=== PATIENT | female | born 1940 | race Caucasian/White ===

== ENCOUNTER 2017-08-01 10:46 | Emergency (ER) | payer MEDICARE ==
[~2017-08-01] VITALS: Ht 162.6 cm; Wt 45.0 kg
[~2017-08-01 10:46] MED LIST: NORC5TAB PO; QUET50XR PO
[2017-08-01 10:49] VITALS: BP 147/67; PULSE 90; RESP 14; O2SAT 98
--- NOTE | 2017-08-01 11:17 | PD ---
HPI Chief Complaint: Fall Time Seen by Provider: 11:06 Travel History International Travel<30 days: No Contact w/Intl Traveler<30days: No Traveled to known affect area: No History of Present Illness HPI Patient comes in with her caregiver for evaluation of left hip pain after a witnessed mechanical fall last night. There was no head injury or loss of consciousness. Patient has been able to ambulate with assistance since the fall however complaining of pain in her left hip per caregiver. Patient has a history of dementia and is at her baseline per her caregiver is not able to contribute to her history at this time. Patient is very anxious which caregiver reports is normal whenever she is outside of her house. Caregiver denies doing anything for the hip pain. Pain improves with not walking and worse with weightbearing. PFSH Past Medical History Alzheimer's Disease: Yes Arthritis: No Asthma: No Autoimmune Disease: No Heart Rhythm Problems: No Cardiovascular Problems: Yes High Cholesterol: Yes Chest Pain: No Congestive Heart Failure: No COPD: No Cerebrovascular Accident: Yes Dementia: Yes Diminished Hearing: No Endocrine: No Gastrointestinal Disorders: No GERD: No Genitourinary: Yes Headaches: No Hepatitis: No Hiatal Hernia: No Hypertension: Yes Immune Disorder: No Kidney Stones: No Musculoskeletal: No Neurologic: No Psychiatric: No Reproductive: No Respiratory: No Migraines: No Renal Failure: No Seizures: No Sleep Apnea: No Ulcer: No ?: Not Menopausal: Yes Past Surgical History Appendectomy: No Cardiac Surgery: No Cholecystectomy: Yes Ear Surgery: No Endocrine Surgery: No Eye Surgery: No Genitourinary Surgery: No Gynecologic Surgery: Yes (Prolapsed bladder) Hysterectomy: Yes Neurologic Surgery: No Oral Surgery: No Thoracic Surgery: No Other Surgery: Yes Social History Alcohol Use: No Tobacco Use: No Substance Use: No Allergies-Medications (Allergen,Severity, Reaction): Coded Allergies: No Known Allergies (Verified , 08/01/17) Reported Meds & Prescriptions Reported Meds & Active Scripts Active Tylenol-Codeine #3 (Acetaminophen-Codeine) 300-30 mg Tab 1 Tab PO Q6HR PRN Reported Seroquel XR (Quetiapine Fumarate) 50 Mg Tab 50 Mg PO DAILY Review of Systems ROS Limitations: Poor Historian Except as stated in HPI: all other systems reviewed are Neg Physical Exam Exam Limitations: Poor Historian Narrative GENERAL: Well-developed, well nourished, anxious, but in no acute distress, and non-ill appearing. SKIN: Focused skin assessment warm and dry. HEAD: Atraumatic. Normocephalic. EYES: Pupils equal and round. EOMI. No scleral icterus. No injection or drainage. ENT: No nasal bleeding or discharge. Mucous membranes pink and moist. NECK: Trachea midline. Supple. No nuclear rigidity. CARDIOVASCULAR: Dorsal pulses 2+, intact, equal bilaterally. Capillary refill equal bilaterally. RESPIRATORY: No accessory muscle use. No respiratory distress. MUSCULOSKELETAL: No obvious deformities. No clubbing. No cyanosis. No edema. Patient moving all extremities trying to climb out of bed. Hip: FROM and equal BL with passive flexion, extension, Abduction, Adduction, and internal/ external rotation. Pulses equal BL distal to injury. Capillary refill less than 2 seconds distal to injury and equal BL. FROM distal to injury and equal BL. Strength distal to injury equal BL. NV intact distal to injury and equal BL. Plantar flexion and dorsal flexion equal BL. Dorsal pulses equal BL. Sensation equal BL 1st web space. NEUROLOGICAL: Awake and alert. No obvious cranial nerve deficits. Motor grossly within normal limits. Normal speech for patient. PSYCHIATRIC: Appropriate mood and affect. Patient is at her baseline per caregiver. Data Data Last Documented VS Vital Signs Date Time Temp Pulse Resp B/P (MAP) Pulse Ox O2 Delivery O2 Flow Rate FiO2 08/01/17 14:38 08/01/17 10:49 90 14 98 Orders Orders Hip, Uni(Ap&Lat) W Ap Pelvis (08/01/17 ) Ct Pelvis W/O Iv Contrast (08/01/17 ) Ed Discharge Order (08/01/17 14:29) [facility] Medical Decision Making Medical Screen Exam Complete: Yes Emergency Medical Condition: Yes Interpretation(s) Last Impressions Pelvis CT 08/01/17 0000 Signed Impressions: Service Date/Time: Tuesday, August 01, 2017 13:50 - CONCLUSION: No fracture seen. Pato Kat MD Hip and Pelvis X-Ray 08/01/17 0000 Signed Impressions: Service Date/Time: Tuesday, August 01, 2017 11:31 - CONCLUSION: Intact left total hip arthroplasty. Diffuse osteopenia. Pato Kat MD Differential Diagnosis Fracture, strain, contusion, dislocation Narrative Course The patient appears to have suffered a contusion of the extremity. There is no clinical evidence to suspect bony injury by exam. Radiographic examinations revealed no fracture seen at this time. There is no significant edema. There is no proximal or distal joint effusion. The distal extremity appears neurovascularly intact, without evidence of neurovascular injury nor compartment syndrome. Tendon exam also was intact. The patient was discharged on pain medication and instructions given warnings for vascular compromise. The patient is to follow up with their regular physician. The patient caregiver agrees with plan. Patient in no obvious distress upon re-evaluation. All pertinent Radiology result(s) discussed with patient and her caregiver. Discussed patient with Dr. Holland prior to discharge, who is in agreement with plan of care and disposition. Patient's caregiver was asked if they wanted to speak to my attending, which the patient did not wish to do at this time. Any questions/ concerns in reference to patient diagnosis/condition discussed and clarified prior to patient's discharge. Reinforced sheer importance of close follow up with patient's primary physician or primary care clinic. Instructed patient's caregiver to return to ED immediately, if symptoms return/worsen. Patient's caregiver showed understanding of above instructions. Further instructions and recommendations were detailed in discharge paperwork. Patient left without difficulty out of ED at discharge. Diagnosis Primary Impression: Left hip pain Additional Impression: Fall Qualified Codes: W19.XXXA - Unspecified fall, initial encounter Patient Instructions: Contusion in Adults (ED), Fall Prevention (ED), General Instructions, Hip Pain (ED) Additional Instructions: Follow-up with your primary care physician in 3-5 days for reevaluation. Take all medication as prescribed. Apply ice to affected area 20 minutes per hour as needed for pain. Return to the emergency department if symptoms get worse. Med/Other Pt SpecificInfo: Prescription(s) given Scripts Acetaminophen-Codeine (Tylenol-Codeine #3) 300-30 mg Tab 1 TAB PO Q6HR Y for PAIN, #9 TAB 0 Refills Prov: Edin Holland MD 08/01/17 Disposition: 01 DISCHARGE HOME Condition: Stable Sandip Ken Aug 01, 2017 11:17
--- NOTE | 2017-08-01 12:07 | RADRPT ---
EXAM DATE/TIME: 08/01/2017 11:31 [facility] COMPARISON: No previous studies available for comparison. INDICATIONS : Left hip pain, fall. MEDICAL HISTORY : Stroke. Hypertension SURGICAL HISTORY : Cholecystectomy. Hysterectomy. Left total hip replacement, bladder surgery. ENCOUNTER: Initial ACUITY: 2 days PAIN SCORE: 5/10 LOCATION: Left hip FINDINGS: Unipolar noncemented total hip arthroplasty on the left side with intact hardware. The bone metal in terface is intact. No fracture or dislocation seen. Metallic cage devices at the L5-S1 interspace. Diffuse osteopenia. The bony pelvic ring appears grossly intact. CONCLUSION: Intact left total hip arthroplasty. Diffuse osteopenia. Pato Kat MD on August 01, 2017 at 12:00 Board Certified Radiologist. This report was verified electronically.
--- NOTE | 2017-08-01 14:17 | RADRPT ---
EXAM DATE/TIME: 08/01/2017 13:50 [facility] COMPARISON: HIP LEFT (AP&LAT 2/3VWS) W AP PELVIS, August 01, 2017, 11:31. INDICATIONS : Fall last night, left hip pain. ORAL CONTRAST: No oral contrast ingested. RADIATION DOSE: 10.55 CTDIvol (mGy) ; Patient motion MEDICAL HISTORY : Alzheimer's Dementia. Cardiovascular disease SURGICAL HISTORY : Left hip replacement. ENCOUNTER: Initial ACUITY: 1 day PAIN SCALE: 8/10 LOCATION: Left pelvis TECHNIQUE: Volumetric scanning of the pelvis was performed. Using automated exposure control and adjustment of the mA and/or kV according to patient size, radiation dose was kept as low as reasonably achievable t o obtain optimal diagnostic quality images. DICOM format image data is available electronically for review and comparison. FINDINGS: One diffuse osteopenia. No fracture seen in the pelvic ring or sacrum. Left total hip arthroplasty in. Hardware is intact. Metallic interspace cage at the L5-S1 interspace. No evidence of free flui d pelvis. Post surgical changes right lateral iliac wing. CONCLUSION: No fracture seen. Pato Kat MD on August 01, 2017 at 14:13 Board Certified Radiologist. This report was verified electronically.
[2017-08-01] MEDS ORDERED: TYLETAB34 PO (14:27)
== END 2017-08-01 14:39 | disposition home or self-care (01) ==
LOC: NEPC 10:46
DX: M25.552 Pain in left hip (principal); M85.80 Other specified disorders of bone density and structure, unspecified site; E78.00 Pure hypercholesterolemia, unspecified; G30.9 Alzheimer's disease, unspecified; F02.80 Dementia in other diseases classified elsewhere, unspecified severity, without behavioral disturbance, psychotic disturbance, mood disturbance, and anxiety; Z86.73 Personal history of transient ischemic attack (TIA), and cerebral infarction without residual deficits; W19.XXXA Unspecified fall, initial encounter
CPT/HCPCS: 72192; 73502

== ENCOUNTER 2018-03-25 11:42 | Inpatient (IN) | payer MEDICARE ==
[~2018-03-25] VITALS: Ht 162.6 cm; Wt 60.5 kg
[2018-03-25] VITALS (7 sets, daily range): BP systolic 122–178; BP diastolic 57–80; PULSE 84–99; RESP 16–19; TEMP 97.3–98.5; O2SAT 96–98
[~2018-03-25 11:42] MED LIST changes: -NORC5TAB PO; +TYLETAB34 PO
[2018-03-25] MEDS ORDERED: SODIUM CHLORIDE 0.9% FLUSH 10 ML FLUSH IVF PRN (12:00)
--- NOTE | 2018-03-25 12:02 | PD ---
HPI Chief Complaint: Hip Injury Time Seen by Provider: 11:54 Travel History International Travel<30 days: No Contact w/Intl Traveler<30days: No History of Present Illness HPI 78-year-old female with PMH of dementia presents the ED via EMS for evaluation after mechanical fall last night. Witnessed by the caregiver. Caregiver on scene denies that the patient hit her head or loss consciousness. She states that the patient took a few steps on the leg overnight. On exam the patient is alert. She is demented and unable to provide any meaningful history. PFSH Past Medical History Alzheimer's Disease: Yes Arthritis: No Asthma: No Autoimmune Disease: No Anxiety: Yes Heart Rhythm Problems: No Cardiovascular Problems: Yes High Cholesterol: Yes Chest Pain: No Congestive Heart Failure: No COPD: No Cerebrovascular Accident: Yes Dementia: Yes Diminished Hearing: No Endocrine: No Gastrointestinal Disorders: No GERD: No Genitourinary: Yes Headaches: No Hepatitis: No Hiatal Hernia: No Hypertension: Yes Immune Disorder: No Kidney Stones: No Musculoskeletal: No Neurologic: No Psychiatric: No Reproductive: No Respiratory: No Migraines: No Renal Failure: No Seizures: No Sleep Apnea: No Ulcer: No Menopausal: Yes Past Surgical History Appendectomy: No Cardiac Surgery: No Cholecystectomy: Yes Ear Surgery: No Endocrine Surgery: No Eye Surgery: No Genitourinary Surgery: No Gynecologic Surgery: Yes (Prolapsed bladder) Hysterectomy: Yes Neurologic Surgery: No Oral Surgery: No Thoracic Surgery: No Other Surgery: Yes Social History Alcohol Use: No Tobacco Use: No Substance Use: No Allergies-Medications (Allergen,Severity, Reaction): Coded Allergies: No Known Allergies (Verified Allergy, Unknown, 03/25/18) Reported Meds & Prescriptions Reported Meds & Active Scripts Active Tylenol-Codeine #3 (Acetaminophen-Codeine) 300-30 mg Tab 1 Tab PO Q6HR PRN Reported Seroquel XR (Quetiapine Fumarate) 50 Mg Tab 50 Mg PO DAILY Review of Systems Except as stated in HPI: all other systems reviewed are Neg Physical Exam Narrative GENERAL: Well-nourished, well-developed, thin, foul-smelling white female no acute distress. SKIN: Focused skin assessment warm/dry. HEAD: Normocephalic. EYES: No scleral icterus. No injection or drainage. NECK: Supple, trachea midline. No JVD or lymphadenopathy. CARDIOVASCULAR: Regular rate and rhythm without murmurs, gallops, or rubs. RESPIRATORY: Breath sounds equal bilaterally. No accessory muscle use. GASTROINTESTINAL: Abdomen soft, non-tender, nondistended. MUSCULOSKELETAL: No cyanosis, or edema. Moves the upper extremities spontaneously. No tenderness to palpation of the joints of the upper extremities. FOCUSED RIGHT LOWER EXTREMITY EXAM: 2+ DP pulse. The right leg is shortened and externally rotated. Tender to palpation of the anterolateral right hip. Range of motion testing deferred secondary to pain. Neurovascularly intact distally. BACK: Nontender without obvious deformity. No CVA tenderness. Data Data Last Documented VS Vital Signs Date Time Temp Pulse Resp B/P (MAP) Pulse Ox O2 Delivery O2 Flow Rate FiO2 03/25/18 15:20 84 16 130/60 (83) 98 Room Air 03/25/18 11:54 98.5 Orders Orders Electrocardiogram (03/25/18 11:57) Complete Blood Count With Diff (03/25/18 11:57) Comprehensive Metabolic Panel (03/25/18 11:57) Prothrombin Time / Inr (Pt) (03/25/18 11:57) Act Partial Throm Time (Ptt) (03/25/18 11:57) Urinalysis - C+S If Indicated (03/25/18 11:57) Type And Screen (03/25/18 11:57) Chest, Single Ap (03/25/18 11:57) Hip, Uni(Ap&Lat) W Ap Pelvis (03/25/18 11:57) Iv Access Insert/Monitor (03/25/18 11:57) Oximetry (03/25/18 11:57) Ecg Monitoring (03/25/18 11:57) Sodium Chloride 0.9% Flush (Ns Flush) (03/25/18 12:00) NPO (03/25/18 11:57) Morphine Inj (Morphine Inj) (03/25/18 12:15) Urinary Catheter Insert/Apply (03/25/18 12:51) Urine Culture (03/25/18 12:50) Ceftriaxone Inj (Rocephin Inj) (03/25/18 13:45) Zhou's Traction (03/25/18 ) Consult Orthopedic (03/25/18 ) Admit To Inpatient (03/25/18 ) Vital Signs (Adult) Q4H (03/25/18 15:09) Activity Bed Rest (03/25/18 15:09) Sodium Chloride 0.9% Flush (Ns Flush) (03/25/18 15:15) Sodium Chloride 0.9% Flush (Ns Flush) (03/25/18 21:00) Acetamin-Hydrocod 325-5 Mg ([place] 5-325 (03/25/18 15:15) Ondansetron Inj (Zofran Inj) (03/25/18 15:15) Acetaminophen (Tylenol) (03/25/18 15:15) Docusate Sodium (Colace) (03/25/18 21:00) Magnesium Hydroxide Liq (Milk Of Magnesi (03/25/18 15:15) Diphenhydramine Inj (Benadryl Inj) (03/25/18 15:15) Diphenhydramine (Benadryl) (03/25/18 15:15) Naloxone Inj (Narcan Inj) (03/25/18 15:15) Resp Oxygen Markos C Titrat 1-4 L (03/25/18 ) Complete Blood Count With Diff (03/26/18 06:00) Basic Metabolic Panel (Bmp) (03/26/18 06:00) Electrocardiogram (03/25/18 ) Inpatient Certification (03/25/18 ) (Nf) Quetiapine Xr (Seroquel Xr) (03/25/18 15:15) Admit Order (Ed Use Only) (03/25/18 15:18) Morphine Inj (Morphine Inj) (03/25/18 15:15) Labs Laboratory Tests Test 03/25/18 12:50 White Blood Count 13.3 TH/MM3 Red Blood Count 4.08 MIL/MM3 Hemoglobin 11.4 GM/DL Hematocrit 35.1 % Mean Corpuscular Volume 86.0 FL Mean Corpuscular Hemoglobin 28.1 PG Mean Corpuscular Hemoglobin Concent 32.6 % Red Cell Distribution Width 15.0 % Platelet Count 269 TH/MM3 Mean Platelet Volume 9.8 FL Neutrophils (%) (Auto) 80.6 % Lymphocytes (%) (Auto) 8.6 % Monocytes (%) (Auto) 8.9 % Eosinophils (%) (Auto) 1.1 % Basophils (%) (Auto) 0.8 % Neutrophils # (Auto) 10.7 TH/MM3 Lymphocytes # (Auto) 1.1 TH/MM3 Monocytes # (Auto) 1.2 TH/MM3 Eosinophils # (Auto) 0.1 TH/MM3 Basophils # (Auto) 0.1 TH/MM3 CBC Comment DIFF FINAL Differential Comment Prothrombin Time 9.4 SEC Prothromb Time International Ratio 0.9 RATIO Activated Partial Thromboplast Time 23.1 SEC Urine Color YELLOW Urine Turbidity HAZY Urine pH 7.0 Urine Specific [place] 1.015 Urine Protein 30 mg/dL Urine Glucose (UA) NEG mg/dL Urine Ketones NEG mg/dL Urine Occult Blood NEG Urine Nitrite POS Urine Bilirubin NEG Urine Urobilinogen 2.0 mg/dL Urine Leukocyte Esterase NEG Urine RBC 1 /hpf Urine WBC 2 /hpf Urine Squamous Epithelial Cells <1 /hpf Urine Bacteria OCC /hpf Urine Mucus FEW /lpf Microscopic Urinalysis Comment CATH-CULTURE IND Blood Urea Nitrogen 26 MG/DL Creatinine 0.75 MG/DL Random Glucose 114 MG/DL Total Protein 7.1 GM/DL Albumin 3.2 GM/DL Calcium Level 10.0 MG/DL Alkaline Phosphatase 81 U/L Aspartate Amino Transf (AST/SGOT) 34 U/L Alanine Aminotransferase (ALT/SGPT) 23 U/L Total Bilirubin 0.8 MG/DL Sodium Level 141 MEQ/L Potassium Level 4.6 MEQ/L Chloride Level 108 MEQ/L Carbon Dioxide Level 24.7 MEQ/L Anion Gap 8 MEQ/L Estimat Glomerular Filtration Rate 75 ML/MIN MDM Medical Decision Making Medical Screen Exam Complete: Yes Emergency Medical Condition: Yes Differential Diagnosis Hip fracture versus dislocation versus pelvic fracture versus other Narrative Course 78-year-old female with history of Alzheimer's, dementia presents the ED via EMS after mechanical fall at home. Right leg is foreshortened and externally rotated with tenderness of the anterolateral hip noted. X-rays reveal intertrochanteric hip fracture. Patient's caregiver at bedside states the patient only takes Seroquel, no other meds. Patient's daughter lives out of state and is the medical decision maker. Light [employer] Vehicle Officer has been in contact with the daughter who is on board with the plan for admission and surgery. EKG rate 80, sinus rhythm with first-degree AV block. DC interval 249, QRS 102 , QTC 4 8 ms. Normal axis. No acute ST changes. Reviewed by Dr. Fairchild. CBC: WBC 13.3. Hemoglobin 11.4. Coags: INR 0.9. CMP: BUN 26, creatinine 0.75. UA: Hazy, nitrite positive, occasional bacteria. Culture pending. Patient was administered 1 g of Rocephin IV. I spoke with Dr. Malcolm. He recommends patient be placed in Zhou's traction , made n.p.o. after midnight. I spoke with Dr. Blanco who agrees to accept the patient the medicine service. Please see Ortho and Medicine notes for disposition. Cece Cline Mar 25, 2018 12:02
[2018-03-25] MEDS ORDERED: MORPHINE SULFATE 4 MG/ML INJ IV PUSH ONE (12:15)
--- NOTE | 2018-03-25 12:51 | RADRPT ---
EXAM DATE: 03/25/2018 12:49 PM EDT AGE/SEX: 78 years / Female INDICATIONS: Fell at home per nurse CLINICAL DATA: This is the patient's initial encounter. Patient reports that signs and symptoms have been present for 1 day and indicates a pain score of Nonresponsive. MEDICAL/SURGICAL HISTORY: Cardiovascular disease. Alzheimer's, dementia . left hip replacement COMPARISON: [facility], CHEST SINGLE AP, 07/25/2014. . FINDINGS: A single AP view of the chest demonstrates the lungs to be symmetrically aerated without evidence of mass, infiltrate or effusion. The cardiomediastinal contours are unremarkable. Osseous structures a re intact. CONCLUSION: No acute intrathoracic disease. Stable examination compared to the prior study. Electronically signed by: Herman Garcia MD 03/25/2018 12:50 PM EDT
[2018-03-25 13:05] LABS: AUTOMATED NEUTROPHIL # 10.7 TH/MM3 (1.8-7.7); BASOPHIL # 0.1 TH/MM3 (0-0.2); BASOPHIL % 0.8 % (0.0-2.0); EOSINOPHIL # 0.1 TH/MM3 (0-0.4); EOSINOPHIL % 1.1 % (0.0-4.0); HEMATOCRIT 35.1 % (35.0-46.0); HEMOGLOBIN 11.4 GM/DL (11.6-15.3); LYMPH % 8.6 % (9.0-44.0); LYMPHOCYTE # 1.1 TH/MM3 (1.0-4.8); MEAN CORPUSCULAR HEMOGLOBIN 28.1 PG (27.0-34.0); MEAN CORPUSCULAR HGB CONC 32.6 % (32.0-36.0); MEAN PLATELET VOLUME 9.8 FL (7.0-11.0); MONO % 8.9 % (0.0-8.0); MONOCYTE # 1.2 TH/MM3 (0-0.9); NEUT % 80.6 % (16.0-70.0); PLATELET COUNT 269 TH/MM3 (150-450); RED BLOOD COUNT 4.08 MIL/MM3 (4.00-5.30); WHITE BLOOD COUNT 13.3 TH/MM3 (4.0-11.0)
--- NOTE | 2018-03-25 13:08 | RADRPT ---
EXAM DATE: 03/25/2018 12:55 PM EDT AGE/SEX: 78 years / Female INDICATIONS: Fell at home per nurse. CLINICAL DATA: This is the patient's initial encounter. Patient reports that signs and symptoms have been present for 1 day and indicates a pain score of Nonresponsive. MEDICAL/SURGICAL HISTORY: Cardiovascular disease. Alzheimer's dementia . left hip replacement COMPARISON: No prior exams available for comparison. FINDINGS: There is a right intertrochanteric femoral neck fracture. The right hip joint is normally aligned. Th ere is a hip prosthesis seen on the left side. There are surgical hardware at the lumbosacral region. CONCLUSION: Acute intertrochanteric right femoral neck fracture. Electronically signed by: Toon Wright MD 03/25/2018 1:06 PM EDT
[2018-03-25 13:17] LABS: BACTERIA, URINE OCC /hpf; BILIRUBIN, URINE NEG (NEG); BLOOD, URINE NEG (NEG); GLUCOSE,URINE NEG (NEG); KETONE, URINE NEG (NEG); MUCUS URINE FEW /lpf (OCC); NITRITE,URINE POS (NEG); SQUAMOUS EPITHELIAL CELL URINE <1 /hpf (0-5); URINE COLOR YELLOW (YELLW/STRAW); URINE LEUKOCYTE ESTERASE NEG (NEG)
[2018-03-25 13:23] LABS: INTERNATIONAL NORMALIZED RATIO 0.9 RATIO; PROTHROMBIN TIME - PATIENT 9.4 SEC (9.8-11.6)
[2018-03-25 13:26] LABS: ALKALINE PHOSPHATASE 81 U/L (45-117); ALT (GPT) 23 U/L (10-53); TOTAL BILIRUBIN ADULT 0.8 MG/DL (0.2-1.0); TOTAL PROTEIN 7.1 GM/DL (6.4-8.2)
[2018-03-25 13:37] LABS: ALBUMIN 3.2 GM/DL (3.4-5.0); AST (GOT) 34 U/L (15-37); BICARBONATE 24.7 MEQ/L (21.0-32.0); BLOOD UREA NITROGEN 26 MG/DL (7-18); CHLORIDE 108 MEQ/L (98-107); CREATININE 0.75 MG/DL (0.50-1.00); GLOMERULAR FILTRATION RATE 75 ML/MIN (>89); GLUCOSE,RANDOM 114 MG/DL (74-106); SODIUM (NA) 141 MEQ/L (136-145)
[2018-03-25] MEDS ORDERED: cefTRIAXone INJ 1,000 MG in SODIUM CHLORIDE 0.9% INJ 100 ML IV ONE (13:45)
[2018-03-25] MEDS ORDERED: NALOXONE HCL 0.4 MG/ML AMP IV PUSH PRN (15:15)
[2018-03-25] MEDS ORDERED: QUEtiapine FUMARATE 25 MG TAB PO SCH (15:15)
[2018-03-25] MEDS ORDERED: SODIUM CHLORIDE 0.9% FLUSH 10 ML FLUSH IV FLUSH PRN (15:15)
[2018-03-25] MEDS ORDERED: ACETAMINOPHEN/HYDROcodone 325 MG/5 MG TAB PO PRN (15:15)
[2018-03-25] MEDS ORDERED: ONDANSETRON ODT 4 MG TAB PO PRN (15:15)
[2018-03-25] MEDS ORDERED: ACETAMINOPHEN 325 MG TAB PO PRN (15:15)
[2018-03-25] MEDS ORDERED: diphenhydrAMINE HCL 25 MG CAP PO PRN (15:15)
[2018-03-25] MEDS ORDERED: diphenhydrAMINE HCL 50 MG/ML VIAL IV PUSH PRN (15:15)
[2018-03-25] MEDS ORDERED: MAGNESIUM HYDROXIDE SUSP 30 ML CUP PO PRN (15:15)
--- NOTE | 2018-03-25 15:31 | HHI.HP ---
HPI Service [facility] Hospitalists Primary Care Physician Unknown Admission Diagnosis Right femoral neck fracture Chief Complaint: Status post fall Travel History International Travel<30 Days: No Contact w/Intl Traveler <30 Da: No Traveled to Known Affected Are: No History of Present Illness This a 78-year-old female patient with past medical history which includes dementia, hypertension, hypercalcemia, hyperlipidemia. Patient presents the ED via EMS for evaluation after mechanical fall last night. The fall was witnessed by the caregiver. Caregiver on scene reports that patient did not hit her head or lose consciousness. Patient disoriented x 3. On exam the patient is alert, but demented and unable to provide meaningful information therefore information gathered from patient physical exam caregiver and prior computerized charting. X-ray right hip reviewed and reveals acute intertrochanteric right femoral neck fracture Review of Systems ROS Limitations: Clinical Condition, Poor Historian Past Family Social History Past Medical History dementia, hypertension, hypercalcemia, hyperlipidemia Past Surgical History Cholecystectomy, hysterectomy Reported Medications Tylenol-Codeine #3 (Acetaminophen-Codeine) 300-30 mg Tab 1 Tab PO Q6HR PRN Seroquel XR (Quetiapine Fumarate) 50 Mg Tab 50 Mg PO DAILY Allergies: Coded Allergies: No Known Allergies (Verified Allergy, Unknown, 03/25/18) Family History Family history of CVA and cancer of unknown type Social History Daughter lives in [place] No report of EtOH use tobacco use or illicit drug use Physical Exam Vital Signs Vital Signs Date Time Temp Pulse Resp B/P (MAP) Pulse Ox O2 Delivery O2 Flow Rate FiO2 03/25/18 14:21 84 16 174/80 (111) 96 Room Air 03/25/18 12:55 84 16 178/74 (108) 98 Room Air 03/25/18 12:51 84 16 98 Room Air 03/25/18 11:54 98.5 99 18 127/74 (91) 96 Physical Exam GENERAL: This is a elderly demented 78-year-old female patient disoriented x 3, appears anxious HEAD: Atraumatic. Normocephalic. No temporal or scalp tenderness. EYES: Extraocular motions intact. No scleral icterus. No injection or drainage. CARDIOVASCULAR: Regular rate and rhythm RESPIRATORY: Clear to auscultation. Breath sounds equal bilaterally. GASTROINTESTINAL: Abdomen soft, non-tender, nondistended. MUSCULOSKELETAL: Extremities without clubbing, cyanosis, or edema. No joint tenderness, effusion, or edema noted. No calf tenderness. Negative Homans sign bilaterally. Right lower extremity shortened and rotated NEUROLOGICAL: Awake and alert, disoriented x 3 but at mental baseline per granddaughter at bedside. No focal deficits noted. Motor and sensory grossly within normal limits, decreased range of motion right lower extremity secondary to pain Laboratory Laboratory Tests Test 03/25/18 12:50 White Blood Count 13.3 Red Blood Count 4.08 Hemoglobin 11.4 Hematocrit 35.1 Mean Corpuscular Volume 86.0 Mean Corpuscular Hemoglobin 28.1 Mean Corpuscular Hemoglobin Concent 32.6 Red Cell Distribution Width 15.0 Platelet Count 269 Mean Platelet Volume 9.8 Neutrophils (%) (Auto) 80.6 Lymphocytes (%) (Auto) 8.6 Monocytes (%) (Auto) 8.9 Eosinophils (%) (Auto) 1.1 Basophils (%) (Auto) 0.8 Neutrophils # (Auto) 10.7 Lymphocytes # (Auto) 1.1 Monocytes # (Auto) 1.2 Eosinophils # (Auto) 0.1 Basophils # (Auto) 0.1 CBC Comment DIFF FINAL Differential Comment Prothrombin Time 9.4 Prothromb Time International Ratio 0.9 Activated Partial Thromboplast Time 23.1 Urine Color YELLOW Urine Turbidity HAZY Urine pH 7.0 Urine Specific [place] 1.015 Urine Protein 30 Urine Glucose (UA) NEG Urine Ketones NEG Urine Occult Blood NEG Urine Nitrite POS Urine Bilirubin NEG Urine Urobilinogen 2.0 Urine Leukocyte Esterase NEG Urine RBC 1 Urine WBC 2 Urine Squamous Epithelial Cells <1 Urine Bacteria OCC Urine Mucus FEW Microscopic Urinalysis Comment CATH-CULTURE IND Blood Urea Nitrogen 26 Creatinine 0.75 Random Glucose 114 Total Protein 7.1 Albumin 3.2 Calcium Level 10.0 Alkaline Phosphatase 81 Aspartate Amino Transf (AST/SGOT) 34 Alanine Aminotransferase (ALT/SGPT) 23 Total Bilirubin 0.8 Sodium Level 141 Potassium Level 4.6 Chloride Level 108 Carbon Dioxide Level 24.7 Anion Gap 8 Estimat Glomerular Filtration Rate 75 Date/Time Source Procedure Growth Status 03/25/18 12:50 Urine Catheterized Urine Urine Culture Pending Received Result Diagram: 03/25/18 1250 03/25/18 1250 Imaging Last Impressions Hip and Pelvis X-Ray 03/25/18 1157 Signed Impressions: CONCLUSION: Acute intertrochanteric right femoral neck fracture. Chest X-Ray 03/25/18 3773 Signed Impressions: CONCLUSION: No acute intrathoracic disease. Stable examination compared to the prior study. Caprini VTE Risk Assessment Caprini VTE Risk Assessment: Mod/High Risk (score >= 2) Caprini Risk Assessment Model Point Value = 1 Point Value = 2 Point Value = 3 Point Value = 5 Age 41-60 Minor surgery BMI > 25 kg/m2 Swollen legs Varicose veins or History of unexplained or recurrent spontaneous Oral contraceptives or hormone replacement Sepsis (< 1 month) Serious lung disease, including pneumonia (< 1 month) Abnormal pulmonary function Acute myocardial infarction Congestive heart failure (< 1 month) History of inflammatory bowel disease Medical patient at bed rest Age 61-74 Arthroscopic surgery Major open surgery (> 45 min) Laparoscopic surgery (> 45 min) Malignancy Confined to bed (> 72 hours) Immobilizing plaster cast Central venous access Age >= 75 History of VTE Family history of VTE Factor V Leiden Prothrombin [id number] Lupus anticoagulant Anticardiolipin antibodies Elevated serum homocysteine Heparin-induced thrombocytopenia Other congenital or acquired thrombophilia Stroke (< 1 month) Elective arthroplasty Hip, pelvis, or leg fracture Acute spinal cord injury (< 1 month) Prophylaxis Regimen Total Risk Factor Score Risk Level Prophylaxis Regimen 0-1 Low Early ambulation 2 Moderate Order ONE of the following: *Sequential Compression Device (SCD) *Heparin 5000 units SQ BID 3-4 Higher Order ONE of the following medications: *Heparin 5000 units SQ TID *Enoxaparin/Lovenox 40 mg SQ daily (WT < 150 kg, CrCl > 30 mL/min) *Enoxaparin/Lovenox 30 mg SQ daily (WT < 150 kg, CrCl > 10-29 mL/min) *Enoxaparin/Lovenox 30 mg SQ BID (WT < 150 kg, CrCl > 30 mL/min) AND/OR *Sequential Compression Device (SCD) 5 or more Highest Order ONE of the following medications: *Heparin 5000 units SQ TID (Preferred with Epidurals) *Enoxaparin/Lovenox 40 mg SQ daily (WT < 150 kg, CrCl > 30 mL/min) *Enoxaparin/Lovenox 30 mg SQ daily (WT < 150 kg, CrCl > 10-29 mL/min) *Enoxaparin/Lovenox 30 mg SQ BID (WT < 150 kg, CrCl > 30 mL/min) AND *Sequential Compression Device (SCD) Assessment and Plan Problem List: (1) Fracture of femoral neck, right ICD Codes: S72.001A - Fracture of unspecified part of neck of right femur, initial encounter for closed fracture Plan: 78-year-old with dementia suffered mechanical fall X-ray right hip reviewed and reveals acute intertrochanteric right femoral neck fracture Consults orthopedic surgery ER physician spoke with Dr. Malcolm who recommends velasquez's traction and plans surgical intervention in a.m. NPO. after midnight [place] and morphine as needed for pain Bowel regimen SCDs for DVT prophylaxis at this time patient is having surgical intervention in a.m. (2) Dementia ICD Codes: F03.90 - Dementia Status: Acute Plan: Continue Seroquel 25 mg p.o. nightly Haldol as needed for agitation Per patient's granddaughter at bedside patient has not done well with Ativan in the past Reorient as needed Assessment and Plan Patient examined. Assessment and plan formulated with Dionna Avendaño PA-C. I agree with the above. Physician Certification 2 Midnight Certification Type: Admission for Inpatient Services Order for Inpatient Services The services are ordered in accordance with Medicare regulations or non- Medicare payer requirements, as applicable. In the case of services not specified as inpatient-only, they are appropriately provided as inpatient services in accordance with the 2-midnight benchmark. Estimated LOS (days): 3 days is the estimated time the patient will need to remain in the hospital, assuming treatment plan goals are met and no additional complications. Post-Hospital Plan: [facility] Dionna Avendaño Mar 25, 2018 15:31 Hunter Blanco DO Mar 28, 2018 11:19
[2018-03-25] MEDS: MORPHINE SULFATE 4 MG/ML INJ IV PUSH PRN ×2 (17:03→23:21)
[2018-03-25] MEDS ORDERED: LORazepam 2 MG/ML VIAL IV PUSH PRN (18:45)
[2018-03-25] MEDS ORDERED: SODIUM CHLOR 0.45% 1000 ML INJ 1,000 ML IV SCH (18:45)
[2018-03-25] MEDS ORDERED: HALOPERIDOL LACTATE 5 MG/ML AMP IM PRN (19:00)
[2018-03-25] MEDS: DOCUSATE SODIUM 100 MG CAP PO SCH (23:22)
[2018-03-25] MEDS: QUEtiapine FUMARATE 25 MG TAB PO SCH (23:22)
[2018-03-25] MEDS: SODIUM CHLORIDE 0.9% FLUSH 10 ML FLUSH IV FLUSH SCH (23:22)
[2018-03-26 04:23] VITALS: BP 194/86; PULSE 80; RESP 18; TEMP 97.4; O2SAT 95
[2018-03-26] MEDS ORDERED: SODIUM CHLORID 0.9% 500 ML IV PRN (04:30)
[2018-03-26] MEDS ORDERED: CHLORHEXIDINE GLUCONATE 2 % 1 PACK (2 CLOTHS) TOPICAL PRN (04:30)
[2018-03-26] MEDS ORDERED: LACTATED RINGER'S 1000 ML IV PRN (04:30)
[2018-03-26] MEDS ORDERED: POVIDONE IODINE 5% (ANTISEPSIS KIT) 4 APPLICATIONS EACH NARE PRN (04:30)
[2018-03-26] MEDS ORDERED: METOPROLOL TARTRATE 25 MG TAB PO PRN (04:30)
[2018-03-26] MEDS: MORPHINE SULFATE 4 MG/ML INJ IV PUSH PRN (04:55)
[2018-03-26 08:00] VITALS: BP 149/79; PULSE 77; RESP 22; TEMP 98; O2SAT 96
[2018-03-26] MEDS: SODIUM CHLORIDE 0.9% FLUSH 10 ML FLUSH IV FLUSH SCH ×2 (09:00→21:00)
[2018-03-26] MEDS: DOCUSATE SODIUM 100 MG CAP PO SCH ×2 (09:00→20:15)
[2018-03-26] MEDS ORDERED: GENTAMICIN SULFATE 80 MG/2 ML VIAL ONE (11:50)
[2018-03-26] MEDS ORDERED: ceFAZolin 2 GM PREMIX 50 ML ONE (11:58)
[2018-03-26] MEDS ORDERED: PHENYLEPH/NS 1000 MCG/10 ML SYR IV ONE (12:00)
[2018-03-26] MEDS ORDERED: LACTATED RINGER'S 1000 ML INJ 1,000 ML IV ONE (12:00)
[2018-03-26] MEDS ORDERED: PROPOFOL 200 MG/20 ML AMP IV ONE (12:00)
[2018-03-26] MEDS ORDERED: TEMAZEPAM 15 MG CAP PO PRN (13:30)
[2018-03-26] MEDS ORDERED: ACETAMINOPHEN/HYDROcodone 325 MG/7.5 MG TAB PO PRN (13:30)
[2018-03-26] MEDS ORDERED: ALUMINUM/MAGNESIUM/SIMETH 30 ML CUP PO PRN (13:30)
[2018-03-26] MEDS ORDERED: MORPHINE SULFATE 8 MG/ML INJ IM PRN (13:30)
[2018-03-26] MEDS ORDERED: ONDANSETRON ODT 4 MG TAB PO PRN (13:30)
--- NOTE | 2018-03-26 13:34 | PD.CONS ---
HPI Service Orthopedic Surgeons Consult Requested By Ed Blanco Reason for Consult Fracture of the right hip Primary Care Physician Unknown Admission Diagnosis Right femoral neck fracture Diagnoses: (1) Fracture of femoral neck, right Diagnosis: Principal (2) Dementia Diagnosis: Secondary Chief Complaint: Right hip pain and inability to ambulate History of Present Illness This patient is a 78-year-old female. She has [id number] caregivers because of dementia and underlying medical conditions. She had a witnessed fall where she landed on her right hip. She had pain and inability to ambulate. She was brought by [facility] to [facility]. X-rays in the emergency room showed evidence of a displaced right intertrochanteric hip fracture. She was admitted to the medical service and I have been asked to see the patient in consultation regarding the same Review of Systems Constitutional: DENIES: Diaphoretic episodes, Fatigue, Fever, Weight gain, Weight loss, Chills, Dizziness, Change in appetite, Night Sweats Endocrine: DENIES: Abnorml menstrual pattern, Heat/cold intolerance, Polydipsia , Polyuria, Polyphagia Eyes: DENIES: Blurred vision, Diplopia, Eye inflammation, Eye pain, Vision loss , Photosensitivity, Double Vision Ears, nose, mouth, throat: DENIES: Tinnitus, Hearing loss, Vertigo, Nasal discharge, Oral lesions, Throat pain, Hoarseness, Ear Pain, Running Nose, Epistaxis, Sinus Pain, Toothache, Odynophagia Respiratory: DENIES: Apneas, Cough, Snoring, Wheezing, Hemoptysis, Sputum production, Shortness of breath Cardiovascular: DENIES: Chest pain, Palpitations, Syncope, Dyspnea on Exertion , PND, Lower Extremity Edema, Orthopnea, Claudication Genitourinary: DENIES: Abnormal vaginal bleeding, Dysmenorrhea, Dyspareunia, Sexual dysfunction, Urinary frequency, Urinary incontinence, Urgency, Hematuria , Dysuria, Nocturia, Vaginal discharge Musculoskeletal: COMPLAINS OF: Joint Swelling, Back pain Integumentary: DENIES: Abnormal pigmentation, Pruritus, Rash, Nail changes, Breast masses, Breast skin changes, Nipple discharge Hematologic/lymphatic: DENIES: Bruising, Lymphadenopathy Immunologic/allergic: DENIES: Eczema, Urticaria Neurologic: COMPLAINS OF: Abnormal gait Psychiatric: COMPLAINS OF: Anxiety, Agitation Past Family Social History Past Medical History Dementia, hypertension Past Surgical History Hysterectomy Allergies: Coded Allergies: No Known Allergies (Verified Allergy, Unknown, 03/25/18) Active Ordered Medications Current Medications Medications (Trade) Dose Ordered Sig/Smita Route Start Time Stop Time Status Last Admin (NS Flush) 2 ml UNSCH PRN IV FLUSH 03/25/18 15:15 (NS Flush) 2 ml BID IV FLUSH 03/25/18 21:00 03/25/18 23:22 (Josephine 5-325 Mg) 1 tab Q4H PRN PO 03/25/18 15:15 (Morphine Inj) 5 mg Q2H PRN IV PUSH 03/25/18 15:15 03/26/18 04:55 (Zofran Odt) 4 mg Q6H PRN PO 03/25/18 15:15 (Tylenol) 650 mg Q4H PRN PO 03/25/18 15:15 (Colace) 100 mg BID PO 03/25/18 21:00 03/25/18 23:22 (Milk Of Magnesia Liq) 30 ml Q6H PRN PO 03/25/18 15:15 (Benadryl Inj) 25 mg Q4H PRN IV PUSH 03/25/18 15:15 (Benadryl) 25 mg Q4H PRN PO 03/25/18 15:15 (Narcan Inj) 0.4 mg UNSCH PRN IV PUSH 03/25/18 15:15 (SEROquel) 25 mg HS PO 03/25/18 21:00 03/25/18 23:22 (Haldol Inj) 2 mg Q8H PRN IM 03/25/18 19:00 03/26/18 11:12 Lactated Ringer's 1,000 ml @ 30 mls/hr Q24H PRN IV 03/26/18 04:30 03/29/18 04:29 03/26/18 04:59 Sodium Chloride 500 ml @ 30 mls/hr [id number] PRN IV 03/26/18 04:30 03/29/18 04:29 (Lopressor) 25 mg OFFICE LEAD PRN PO 03/26/18 04:30 03/29/18 04:29 (Betadine 5% Antisepsis Kit) 1 applic OFFICE LEAD PRN EACH NARE 03/26/18 04:30 03/29/18 04:29 (Chlorhexidine 2% Cloth) 3 pack OFFICE LEAD PRN TOPICAL 03/26/18 04:30 03/29/18 04:29 Reported Meds & Active Scripts Active Tylenol-Codeine #3 (Acetaminophen-Codeine) 300-30 mg Tab 1 Tab PO Q6HR PRN Reported Seroquel XR (Quetiapine Fumarate) 50 Mg Tab 50 Mg PO DAILY Family History Not known Social History Jaadzn-fid-kzzzu caregivers due to dementia. Denies alcohol or cigarettes Physical Exam Vital Signs Vital Signs Date Time Temp Pulse Resp B/P (MAP) Pulse Ox O2 Delivery O2 Flow Rate FiO2 03/26/18 09:10 Nasal Cannula 2.00 03/26/18 08:00 98.0 77 22 149/79 (102) 96 03/26/18 05:00 18 03/26/18 04:23 97.4 80 18 194/86 (122) 95 03/25/18 23:56 Room Air 03/25/18 23:30 97.3 97 19 148/71 (96) 97 03/25/18 19:00 98.2 95 18 122/57 (78) 98 03/25/18 15:20 84 16 130/60 (83) 98 Room Air 03/25/18 14:21 84 16 174/80 (111) 96 Room Air Physical Exam HEENT: Normocephalic atraumatic pupils equal round reactive. NECK: Supple. No abnormal masses. Full range of motion. CHEST: Clear to auscultation with no rales or rhonchi's or wheezes. HEART: Regular rate and rhythm. No murmurs. ABDOMEN: Soft, nontender, no masses. Normal active bowel sounds. GENITOURINARY: Deferred MUSCULOSKELETAL: Left leg has an incision from previous hip surgery. She tends to lie in a flexed position. Right hip is in Zhou's traction. Painful to palpation. Painful range of motion. Mild swelling. No skin breakdown. Dorsalis pedis 1+ Laboratory Date/Time Source Procedure Growth Status 03/25/18 12:50 Urine Catheterized Urine Urine Culture - Preliminary Gram Negative Robert Resulted Result Diagram: 03/25/18 1250 03/25/18 1250 Imaging Review of x-rays and review of the radiologist interpretation shows evidence of a right peritrochanteric hip fracture with shortening and varus alignment Assessment & Plan Assessment and Plan Right peritrochanteric hip fracture. Dementia. PLAN: Surgery: Open treatment internal fixation right hip fracture. Consent: There are risks of surgery including infection bleeding loss of motion continued pain and need for further surgery neurologic or vascular injury. The patient understands these issues and wished to proceed forward with surgery as outlined above. Consent was obtained with the power of criminal defense attorney, her daughter YenmarcosYannick MD Mar 26, 2018 13:34
--- NOTE | 2018-03-26 13:40 | PD.OP ---
cc: Yannick Key MD Operative Report Date of Surgery: Mar 26, 2018 Preoperative Diagnosis: Right peritrochanteric hip fracture Postoperative Diagnosis: Same Procedure: Open treatment internal fixation right hip fracture with intramedullary ingris Anesthesia: General Surgeon: Yannick Key Third Hand(s): NEAL Lo Operation and Findings: EBL: 100 cc INDICATION: This patient is a 78-year-old female who fell yesterday. She has dementia. She has had a previous left femoral neck fracture treated with bipolar hip replacement successfully. She now presents for surgical treatment of a displaced right peritrochanteric hip fracture NOTE: Dinora Lo PA-C was present for the entire surgical procedure as my him assistant. In my medical opinion her skill and care was necessary for proper management of this patient PROCEDURE: The patient was brought to the operating room and anesthetized in the supine position. He was placed on the fracture table with the right leg held extended. The opposite leg was in the well leg solorzano. The hip fracture was reduced anatomically. The hip and leg was scrubbed with alcohol followed by Hibiclens followed by ChloraPrep. A timeout was done and antibiotics were given within 1 hour time window. A longitudinal incision was made over the lateral aspect of the proximal femur. Dissection continued down to the top of the greater trochanter. A cannulated awl was placed down through the top of the greater trochanter followed by placement of the guidepin along the shaft of the femur. This was reamed distally to 1 mm greater than the ingris size and proximally to 17 mm. A separate incision was made laterally followed by placement of guidepin to the proper position of the femoral head. This is reamed and tapped in the proper length was placed up into the proper location. A single transverse screw was placed distally through the ingris. Intraoperative x-rays were obtained. Alignment was satisfactory. No complication was noted. The wound was irrigated copiously. Hemostasis was controlled. The fascia was closed with interrupted Vicryl suture, subcutaneous tissue 2-0 Vicryl suture, skin with running intradermal 3-0 Vicryl followed by Steri-Strips and benzoin. A sterile dressing was applied The patient was awakened and taken to the recovery room in satisfactory condition. FINDINGS: There was evidence of a significantly shortened and displaced peritrochanteric hip fracture with comminution. The final solution was excellent. There was no complication Yannick Key. Mar 26, 2018 13:40
[2018-03-26] MEDS ORDERED: Post-op Orders (for Pharmacy) XX ONE (13:47)
[2018-03-26] MEDS ORDERED: DO NOT ADM ANY ANTICOAGULANT DRUGS PRN (13:53)
[2018-03-26] MEDS ORDERED: *MEPERIDINE 25 MG INJ VIAL PERIprocedural Use ONLY ONE (13:54)
[2018-03-26] MEDS: LACTATED RINGER'S 1000 ML INJ 1,000 ML IV SCH (14:00)
[2018-03-26] MEDS ORDERED: *morphine SULFATE 4 MG/ML PERIprocedure ONLY ONE (14:01)
--- NOTE | 2018-03-26 14:08 | HHI.PR ---
Subjective Remarks Patient is S/P Open treatment internal fixation right hip fracture with intramedullary ingris 03/26/[address] Key patient resting comfortable at this time per nursing patient has had periods of confusion and pulling at IVs and gown Objective Vitals Vital Signs Date Time Temp Pulse Resp B/P (MAP) Pulse Ox O2 Delivery O2 Flow Rate FiO2 03/26/18 09:10 Nasal Cannula 2.00 03/26/18 08:00 98.0 77 22 149/79 (102) 96 03/26/18 05:00 18 03/26/18 04:23 97.4 80 18 194/86 (122) 95 03/25/18 23:56 Room Air 03/25/18 23:30 97.3 97 19 148/71 (96) 97 03/25/18 19:00 98.2 95 18 122/57 (78) 98 03/25/18 15:20 84 16 130/60 (83) 98 Room Air 03/25/18 14:21 84 16 174/80 (111) 96 Room Air 03/26/18 03/26/18 03/27/18 15:00 23:00 07:00 Intake Total 1200 ml Output Total 300 ml Balance 900 ml Other 1200 ml Output Urine Total 250 ml Estimated Blood Loss 50 ml Result Diagram: 03/25/18 1250 03/25/18 1250 Other Results Laboratory Tests Test 03/25/18 12:50 White Blood Count 13.3 TH/MM3 Red Blood Count 4.08 MIL/MM3 Hemoglobin 11.4 GM/DL Hematocrit 35.1 % Mean Corpuscular Volume 86.0 FL Mean Corpuscular Hemoglobin 28.1 PG Mean Corpuscular Hemoglobin Concent 32.6 % Red Cell Distribution Width 15.0 % Platelet Count 269 TH/MM3 Mean Platelet Volume 9.8 FL Neutrophils (%) (Auto) 80.6 % Lymphocytes (%) (Auto) 8.6 % Monocytes (%) (Auto) 8.9 % Eosinophils (%) (Auto) 1.1 % Basophils (%) (Auto) 0.8 % Neutrophils # (Auto) 10.7 TH/MM3 Lymphocytes # (Auto) 1.1 TH/MM3 Monocytes # (Auto) 1.2 TH/MM3 Eosinophils # (Auto) 0.1 TH/MM3 Basophils # (Auto) 0.1 TH/MM3 CBC Comment DIFF FINAL Differential Comment Prothrombin Time 9.4 SEC Prothromb Time International Ratio 0.9 RATIO Activated Partial Thromboplast Time 23.1 SEC Urine Color YELLOW Urine Turbidity HAZY Urine pH 7.0 Urine Specific [place] 1.015 Urine Protein 30 mg/dL Urine Glucose (UA) NEG mg/dL Urine Ketones NEG mg/dL Urine Occult Blood NEG Urine Nitrite POS Urine Bilirubin NEG Urine Urobilinogen 2.0 mg/dL Urine Leukocyte Esterase NEG Urine RBC 1 /hpf Urine WBC 2 /hpf Urine Squamous Epithelial Cells <1 /hpf Urine Bacteria OCC /hpf Urine Mucus FEW /lpf Microscopic Urinalysis Comment CATH-CULTURE IND Blood Urea Nitrogen 26 MG/DL Creatinine 0.75 MG/DL Random Glucose 114 MG/DL Total Protein 7.1 GM/DL Albumin 3.2 GM/DL Calcium Level 10.0 MG/DL Alkaline Phosphatase 81 U/L Aspartate Amino Transf (AST/SGOT) 34 U/L Alanine Aminotransferase (ALT/SGPT) 23 U/L Total Bilirubin 0.8 MG/DL Sodium Level 141 MEQ/L Potassium Level 4.6 MEQ/L Chloride Level 108 MEQ/L Carbon Dioxide Level 24.7 MEQ/L Anion Gap 8 MEQ/L Estimat Glomerular Filtration Rate 75 ML/MIN Imaging Last Impressions Hip and Pelvis X-Ray 03/25/18 1157 Signed Impressions: CONCLUSION: Acute intertrochanteric right femoral neck fracture. Chest X-Ray 03/25/18 1157 Signed Impressions: CONCLUSION: No acute intrathoracic disease. Stable examination compared to the prior study. Objective Remarks GENERAL: This is an elderly 78 year old female with dementia disoriented x 3, in no apparent distress. CARDIOVASCULAR: Regular rate and rhythm RESPIRATORY: Clear to auscultation. Breath sounds equal bilaterally. GASTROINTESTINAL: Abdomen soft, non-tender, nondistended. Normal active bowel sounds MUSCULOSKELETAL: Extremities without clubbing, cyanosis, or edema. Post- op dressing dry and intact NEURO: disoriented x 3. No focal deficits noted Procedures 03/26/18 Open treatment internal fixation right hip fracture with intramedullary ingris with Dr. Key A/P Problem List: (1) Fracture of femoral neck, right ICD Codes: S72.001A - Fracture of unspecified part of neck of right femur, initial encounter for closed fracture Plan: 78-year-old with dementia suffered mechanical fall X-ray right hip reviewed and reveals acute intertrochanteric right femoral neck fracture Consults orthopedic surgery ER physician spoke with Dr. Malcolm who recommends velasquez's traction and plans surgical intervention in a.m. (03/26/18) [place] and morphine as needed for pain Bowel regimen S/P Open treatment internal fixation right hip fracture with intramedullary ingris with Dr. Key 03/26/18 SCDs for DVT prophylaxis chemical DVT prophylaxis per orthopedic surgery (2) Dementia ICD Codes: F03.90 - Dementia Status: Acute Plan: Continue Seroquel 25 mg p.o. nightly Haldol as needed for agitation Per patient's granddaughter at bedside patient has not done well with Ativan in the past Reorient as needed restraints if needed Assessment and Plan Patient examined. Assessment and plan formulated with Dionna Avendaño PA-C. I agree with the above. Dionna Avendaño Mar 26, 2018 14:08 Hunter Blanco DO Mar 28, 2018 11:20
[2018-03-26] MEDS ORDERED: *RESP: ALBUTEROL 2.5 MG/3 ML NEB (PRN) PERIprocedural Use ONLY NEB ONE (14:22)
--- NOTE | 2018-03-26 15:30 | RADRPT ---
EXAM DATE: 03/26/2018 2:08 PM EDT AGE/SEX: 78 years / Female INDICATIONS: ORIF right hip fracture. CLINICAL DATA: This is the patient's subsequent encounter. Patient reports that signs and symptoms h ave been present for 2 days and indicates a pain score of Nonresponsive. MEDICAL/SURGICAL HISTORY: Non-responsive. Non-responsive. COMPARISON: [facility] [place], HIP RIGHT (AP&LAT 2/3VWS) W AP PELVIS, 03/25/2018. . FINDINGS: 4 films from the OR and submitted. There is a short ingris through the proximal femur. There is a compre ssion screw seen through the femoral neck and head. These successfully reduced the previously seen i ntertrochanteric right femoral neck fracture. The hardware is well placed. The hip joint is normally aligned. CONCLUSION: Successful ORIF. Electronically signed by: Tono Wright MD 03/26/2018 3:29 PM EDT
[2018-03-26 17:45] VITALS: BP 116/56; PULSE 77; RESP 22; TEMP 97.8; O2SAT 100
--- NOTE | 2018-03-26 19:29 | EKG ---
Date Performed: 03/25/2018 Time Performed: 13:43:29 PTAGE: 78 years EKG: Sinus rhythm WITH FIRST DEGREE AV BLOCK POSSIBLE RIGHT ATRIAL ENLARGEMENT ABNORMAL ECG Baseline artifact PREVIOUS TRACING : 04/02/2015 13.47 When compared to prior EKG,patient is no longer moni cardic DOCTOR: Liz Garcia Interpretating Date/Time 03/26/2018 19:27:50
[2018-03-26 20:04] VITALS: BP 163/78; PULSE 121; RESP 19; TEMP 98.9; O2SAT 93
[2018-03-26 20:07] LABS: AUTOMATED NEUTROPHIL # 14.9 TH/MM3 (1.8-7.7); BASOPHIL # 0.1 TH/MM3 (0-0.2); BASOPHIL % 0.5 % (0.0-2.0); EOSINOPHIL % 0.3 % (0.0-4.0); HEMATOCRIT 29.8 % (35.0-46.0); HEMOGLOBIN 9.8 GM/DL (11.6-15.3); LYMPH % 4.3 % (9.0-44.0); LYMPHOCYTE # 0.7 TH/MM3 (1.0-4.8); MEAN CORPUSCULAR HEMOGLOBIN 28.1 PG (27.0-34.0); MEAN PLATELET VOLUME 9.8 FL (7.0-11.0); MONO % 7.4 % (0.0-8.0); MONOCYTE # 1.3 TH/MM3 (0-0.9); NEUT % 87.5 % (16.0-70.0); PLATELET COUNT 285 TH/MM3 (150-450); RED CELL DISTRIBUTION WIDTH 14.9 % (11.6-17.2)
[2018-03-26] MEDS: SENNOSIDES 8.6 MG TAB PO SCH (20:15)
[2018-03-26] MEDS: MAGNESIUM HYDROXIDE SUSP 30 ML CUP PO SCH (20:15)
[2018-03-26] MEDS: QUEtiapine FUMARATE 25 MG TAB PO SCH (20:15)
[2018-03-26 20:30] LABS: BICARBONATE 25.2 MEQ/L (21.0-32.0); CALCIUM 9.3 MG/DL (8.5-10.1); CREATININE 0.78 MG/DL (0.50-1.00)
[2018-03-27] VITALS (8 sets, daily range): BP systolic 104–137; BP diastolic 54–68; PULSE 79–117; RESP 18–22; TEMP 97.6–99; O2SAT 92–99
[2018-03-27] MEDS: LACTATED RINGER'S 1000 ML INJ 1,000 ML IV SCH ×3 (02:30→15:00)
[2018-03-27 06:16] LABS: HEMATOCRIT 24.9 % (35.0-46.0); HEMOGLOBIN 8.6 GM/DL (11.6-15.3)
--- NOTE | 2018-03-27 07:47 | PD.ORT.PN ---
Subjective Subjective Remarks Patient demented. Unable to answer any questions. Tracks with eyes but speaks incoherently. Does appear to be in distress. Rn notes this as her baseline mentation. Objective Vitals Vital Signs Date Time Temp Pulse Resp B/P (MAP) Pulse Ox O2 Delivery O2 Flow Rate FiO2 03/27/18 04:00 98.5 114 18 124/58 (80) 98 03/27/18 00:01 98.7 109 18 104/55 (71) 97 03/26/18 21:17 3.00 03/26/18 20:15 Nasal Cannula 3.00 03/26/18 20:04 98.9 121 19 163/78 (106) 93 03/26/18 17:45 97.8 77 22 116/56 (76) 100 03/26/18 15:00 67 16 148/72 (97) 99 Nasal Cannula 4 03/26/18 14:45 69 16 146/65 (92) 96 Nasal Cannula 4 03/26/18 14:30 70 16 146/67 (93) 96 Nasal Cannula 4 03/26/18 14:15 66 16 138/65 (89) 93 Simple Mask 8 03/26/18 14:00 69 16 180/75 (110) 95 Simple Mask 8 03/26/18 13:51 97.5 88 16 200/83 (122) 93 Simple Mask 8 03/26/18 09:10 Nasal Cannula 2.00 03/26/18 08:00 98.0 77 22 149/79 (102) 96 I/O 03/26/18 03/26/18 03/26/18 03/27/18 03/27/18 03/27/18 07:00 15:00 23:00 07:00 15:00 23:00 Intake Total 0 ml 1200 ml Output Total 275 ml 300 ml 350 ml Balance -275 ml 900 ml -350 ml Intake Oral 0 ml Other 1200 ml Output Urine Total 275 ml 250 ml 350 ml Estimated Blood Loss 50 ml # Bowel Movements 0 Result Diagram: 03/27/1860203/26/181947 Objective Remarks Laying in bed Not oriented NAD RLE Hip Dressing intact with mild ss drainage, no erythema, very little swelling +motor ehl, +sens (patient retracts to touch), +nvi calf supple Assessment & Plan Ortho Post Op Day #: 1 Problem List: Assessment and Plan Right peritrochanteric hip fracture. Dementia. pod#1 ORIF R Hip, IM Nail Demented. Cannot answer questions clearly. Appears comfortable in bed. PT - TTWBing right leg if oriented. Hold dressing changes unless saturated. Ice hip bid. Lovenox for dvt prophylaxis. SNF when med stable. F/U in 2-3 weeks for postop xrays. Amparo Bradshaw Mar 27, 2018 07:47
[2018-03-27] MEDS: DOCUSATE SODIUM 100 MG CAP PO SCH ×2 (08:30→21:00)
[2018-03-27] MEDS: MAGNESIUM HYDROXIDE SUSP 30 ML CUP PO SCH ×2 (08:30→21:00)
[2018-03-27] MEDS: SODIUM CHLORIDE 0.9% FLUSH 10 ML FLUSH IV FLUSH SCH ×2 (08:34→22:22)
[2018-03-27] MEDS: ENOXAPARIN SODIUM 30 MG/0.3 ML SYRINGE SQ SCH (13:02)
[2018-03-27] MEDS: ACETAMINOPHEN/HYDROcodone 325 MG/7.5 MG TAB PO PRN ×2 (16:11→22:21)
--- NOTE | 2018-03-27 17:40 | HHI.PR ---
Subjective Remarks Patient remains disoriented x 3 appear comfortable in no acute distress Reinoso catheter was placed for retention Objective Vitals Vital Signs Date Time Temp Pulse Resp B/P (MAP) Pulse Ox O2 Delivery O2 Flow Rate FiO2 03/27/18 12:00 99.0 117 22 137/68 (91) 96 03/27/18 08:55 98 Nasal Cannula 3.00 03/27/18 08:30 98 Nasal Cannula 3.00 03/27/18 08:00 98.2 102 18 131/62 (85) 99 03/27/18 04:00 98.5 114 18 124/58 (80) 98 03/27/18 00:01 98.7 109 18 104/55 (71) 97 03/26/18 21:17 3.00 03/26/18 20:15 Nasal Cannula 3.00 03/26/18 20:04 98.9 121 19 163/78 (106) 93 03/26/18 17:45 97.8 77 22 116/56 (76) 100 03/27/18 03/27/18 03/28/18 15:00 23:00 07:00 Output Total 200 ml 700 ml Balance -200 ml -700 ml Output Urine Total 200 ml 700 ml Bladder Scan Volume Amount 418 ml Result Diagram: 03/27/18 0603 03/26/18 194 Imaging Last Impressions Hip and Pelvis X-Ray 03/25/18 1157 Signed Impressions: CONCLUSION: Acute intertrochanteric right femoral neck fracture. Chest X-Ray 03/25/18 1157 Signed Impressions: CONCLUSION: No acute intrathoracic disease. Stable examination compared to the prior study. Objective Remarks GENERAL: This is an elderly 78 year old female with dementia disoriented x 3, in no apparent distress. CARDIOVASCULAR: Regular rate and rhythm RESPIRATORY: Clear to auscultation. Breath sounds equal bilaterally. GASTROINTESTINAL: Abdomen soft, non-tender, nondistended. Normal active bowel sounds MUSCULOSKELETAL: Extremities without clubbing, cyanosis, or edema. Post- op dressing dry and intact NEURO: disoriented x 3. No focal deficits noted Procedures 03/26/18 Open treatment internal fixation right hip fracture with intramedullary ingris with Dr. Key A/P Problem List: (1) Fracture of femoral neck, right ICD Codes: S72.001A - Fracture of unspecified part of neck of right femur, initial encounter for closed fracture Plan: 78-year-old with dementia suffered mechanical fall X-ray right hip reviewed and reveals acute intertrochanteric right femoral neck fracture Consults orthopedic surgery ER physician spoke with Dr. Malcolm who recommends velasquez's traction and plans surgical intervention in a.m. (03/26/18) [place] and morphine as needed for pain Bowel regimen S/P Open treatment internal fixation right hip fracture with intramedullary ingris with Dr. Key 03/26/18 Reinoso catheter had to be placed due to retention Plan to DC to SNF in 2 days SCDs and Lovenox for DVT prophylaxis (2) Dementia ICD Codes: F03.90 - Dementia Status: Acute Plan: Continue Seroquel 25 mg p.o. nightly Haldol as needed for agitation Per patient's granddaughter at bedside patient has not done well with Ativan in the past Reorient as needed patient in restraints - discussed with RN and primer charger to please remove restraints and watch patient closely Assessment and Plan Patient examined. Assessment and plan formulated with Dionna Avendaño PA-C. I agree with the above. Dionna Avendaño Mar 27, 2018 17:40 Hunter Blanco DO Mar 28, 2018 11:21
[2018-03-27] MEDS ORDERED: cefTRIAXone INJ 1,000 MG in SODIUM CHLORIDE 0.9% INJ 100 ML IV SCH (18:00)
[2018-03-27] MEDS: SENNOSIDES 8.6 MG TAB PO SCH (21:00)
[2018-03-27] MEDS: SULFAMETHOXAZOLE-TRIMETHOPRIM DS 800-160 MG TAB PO SCH (21:00)
[2018-03-27] MEDS: QUEtiapine FUMARATE 25 MG TAB PO SCH (22:21)
[2018-03-28] VITALS (9 sets, daily range): BP systolic 90–156; BP diastolic 54–96; PULSE 63–99; RESP 12–24; TEMP 97.2–98.9; O2SAT 90–97
[2018-03-28] MEDS: LACTATED RINGER'S 1000 ML INJ 1,000 ML IV SCH ×3 (03:45→17:25)
[2018-03-28] MEDS: SULFAMETHOXAZOLE-TRIMETHOPRIM DS 800-160 MG TAB PO SCH ×2 (08:03→21:03)
[2018-03-28] MEDS: ACETAMINOPHEN/HYDROcodone 325 MG/7.5 MG TAB PO PRN ×2 (08:03→13:19)
[2018-03-28] MEDS: DOCUSATE SODIUM 100 MG CAP PO SCH ×2 (08:03→21:03)
[2018-03-28] MEDS: MAGNESIUM HYDROXIDE SUSP 30 ML CUP PO SCH ×2 (08:04→20:59)
[2018-03-28] MEDS: SODIUM CHLORIDE 0.9% FLUSH 10 ML FLUSH IV FLUSH SCH ×2 (08:04→21:00)
--- NOTE | 2018-03-28 11:17 | HHI.PR ---
Subjective Remarks Patient resting in bed at this time Per RN patient had been agitated earlier today which has improved after [place] Objective Vitals Vital Signs Date Time Temp Pulse Resp B/P (MAP) Pulse Ox O2 Delivery O2 Flow Rate FiO2 03/28/18 10:13 12 03/28/18 08:18 Room Air 03/28/18 08:15 23 03/28/18 04:00 98.9 88 18 135/96 (109) 93 03/28/18 00:00 98.0 95 18 150/66 (94) 94 03/27/18 20:00 97.6 79 18 105/54 (71) 96 03/27/18 19:45 92 21 03/27/18 19:00 92 Nasal Cannula 3.00 03/27/18 16:00 98.3 89 20 115/55 (75) 93 03/27/18 12:00 99.0 117 22 137/68 (91) 96 03/28/18 03/28/18 03/29/18 15:00 23:00 07:00 Intake Total 3191 ml Balance 3191 ml IV Total 3191 ml Result Diagram: 03/27/18 0603 03/26/18 194 Other Results Laboratory Tests Test 03/25/18 12:50 03/26/18 19:48 03/27/18 06:03 White Blood Count 13.3 TH/MM3 17.0 TH/MM3 Red Blood Count 4.08 MIL/MM3 3.50 MIL/MM3 Hemoglobin 11.4 GM/DL 9.8 GM/DL 8.6 GM/DL Hematocrit 35.1 % 29.8 % 24.9 % Mean Corpuscular Volume 86.0 FL 85.0 FL Mean Corpuscular Hemoglobin 28.1 PG 28.1 PG Mean Corpuscular Hemoglobin Concent 32.6 % 33.0 % Red Cell Distribution Width 15.0 % 14.9 % Platelet Count 269 TH/MM3 285 TH/MM3 Mean Platelet Volume 9.8 FL 9.8 FL Neutrophils (%) (Auto) 80.6 % 87.5 % Lymphocytes (%) (Auto) 8.6 % 4.3 % Monocytes (%) (Auto) 8.9 % 7.4 % Eosinophils (%) (Auto) 1.1 % 0.3 % Basophils (%) (Auto) 0.8 % 0.5 % Neutrophils # (Auto) 10.7 TH/MM3 14.9 TH/MM3 Lymphocytes # (Auto) 1.1 TH/MM3 0.7 TH/MM3 Monocytes # (Auto) 1.2 TH/MM3 1.3 TH/MM3 Eosinophils # (Auto) 0.1 TH/MM3 0.0 TH/MM3 Basophils # (Auto) 0.1 TH/MM3 0.1 TH/MM3 CBC Comment DIFF FINAL DIFF FINAL Differential Comment Prothrombin Time 9.4 SEC Prothromb Time International Ratio 0.9 RATIO Activated Partial Thromboplast Time 23.1 SEC Urine Color YELLOW Urine Turbidity HAZY Urine pH 7.0 Urine Specific [place] 1.015 Urine Protein 30 mg/dL Urine Glucose (UA) NEG mg/dL Urine Ketones NEG mg/dL Urine Occult Blood NEG Urine Nitrite POS Urine Bilirubin NEG Urine Urobilinogen 2.0 mg/dL Urine Leukocyte Esterase NEG Urine RBC 1 /hpf Urine WBC 2 /hpf Urine Squamous Epithelial Cells <1 /hpf Urine Bacteria OCC /hpf Urine Mucus FEW /lpf Microscopic Urinalysis Comment CATH-CULTURE IND Blood Urea Nitrogen 26 MG/DL 29 MG/DL Creatinine 0.75 MG/DL 0.78 MG/DL Random Glucose 114 MG/DL 195 MG/DL Total Protein 7.1 GM/DL Albumin 3.2 GM/DL Calcium Level 10.0 MG/DL 9.3 MG/DL Alkaline Phosphatase 81 U/L Aspartate Amino Transf (AST/SGOT) 34 U/L Alanine Aminotransferase (ALT/SGPT) 23 U/L Total Bilirubin 0.8 MG/DL Sodium Level 141 MEQ/L 140 MEQ/L Potassium Level 4.6 MEQ/L 3.9 MEQ/L Chloride Level 108 MEQ/L 106 MEQ/L Carbon Dioxide Level 24.7 MEQ/L 25.2 MEQ/L Anion Gap 8 MEQ/L 9 MEQ/L Estimat Glomerular Filtration Rate 75 ML/MIN 71 ML/MIN Lactic Acid Level 1.5 mmol/L Imaging Last Impressions Hip and Pelvis X-Ray 03/25/18 115 Signed Impressions: CONCLUSION: Acute intertrochanteric right femoral neck fracture. Chest X-Ray 03/25/181156 Signed Impressions: CONCLUSION: No acute intrathoracic disease. Stable examination compared to the prior study. Objective Remarks GENERAL: This is an elderly 78 year old female with dementia disoriented x 3, in no apparent distress. CARDIOVASCULAR: Regular rate and rhythm RESPIRATORY: Clear to auscultation. Breath sounds equal bilaterally. GASTROINTESTINAL: Abdomen soft, non-tender, nondistended. Normal active bowel sounds MUSCULOSKELETAL: Extremities without clubbing, cyanosis, or edema. Post- op dressing dry and intact NEURO: disoriented x 3. No focal deficits noted Procedures 03/26/18 Open treatment internal fixation right hip fracture with intramedullary ingris with Dr. Key A/P Problem List: (1) Fracture of femoral neck, right ICD Codes: S72.001A - Fracture of unspecified part of neck of right femur, initial encounter for closed fracture Plan: 78-year-old with dementia suffered mechanical fall X-ray right hip reviewed and reveals acute intertrochanteric right femoral neck fracture Consults orthopedic surgery ER physician spoke with Dr. Malcolm who recommends velasquez's traction and plans surgical intervention in a.m. (03/26/18) [place] and morphine as needed for pain Bowel regimen S/P Open treatment internal fixation right hip fracture with intramedullary ingris with Dr. Key 03/26/18 Reinoso catheter had to be placed due to retention (03/27) Plan to DC to SNF in 1-2 days SCDs and Lovenox for DVT prophylaxis (2) Dementia ICD Codes: F03.90 - Dementia Status: Acute Plan: Continue Seroquel 25 mg p.o. nightly Haldol as needed for agitation Per patient's granddaughter (03/25) at bedside patient has not done well with Ativan in the past Reorient as needed patient in restraints - discussed with RN and charge entry clerk to please remove restraints and watch patient closely (3) UTI (lower urinary tract infection) ICD Codes: N39.0 - UTI (lower urinary tract infection) Status: Acute Plan: Urine culture positive for E coli guillaume sensitive Patient started on Bactrim Assessment and Plan Patient examined. Assessment and plan formulated with Dionna Avendaño PA-C. I agree with the above. Dionna Avendaño Mar 28, 2018 11:16 Hunter Blanco DO Mar 28, 2018 23:46
--- NOTE | 2018-03-28 11:54 | PD.ORT.PN ---
Subjective Post Op Day #: 2 Subjective Remarks Patient resting comfortably in bed with no complaints and appears to have minimal pain. Patient has baseline dementia. Objective Vitals Vital Signs Date Time Temp Pulse Resp B/P (MAP) Pulse Ox O2 Delivery O2 Flow Rate FiO2 03/28/18 10:13 12 03/28/18 08:18 Room Air 03/28/18 08:15 23 03/28/18 04:00 98.9 88 18 135/96 (109) 93 03/28/18 00:00 98.0 95 18 150/66 (94) 94 03/27/18 20:00 97.6 79 18 105/54 (71) 96 03/27/18 19:45 92 21 03/27/18 19:00 92 Nasal Cannula 3.00 03/27/18 16:00 98.3 89 20 115/55 (75) 93 03/27/18 12:00 99.0 117 22 137/68 (91) 96 I/O 03/27/18 03/27/18 03/27/18 03/28/18 03/28/18 03/28/18 07:00 15:00 23:00 07:00 15:00 23:00 Intake Total 3191 ml Output Total 350 ml 200 ml 700 ml 550 ml Balance -350 ml -200 ml -700 ml -550 ml 3191 ml IV Total 3191 ml Output Urine Total 350 ml 200 ml 700 ml 550 ml Bladder Scan Volume Amount 418 ml Result Diagram: 03/27/1860203/26/181947 Objective Remarks Laying in bed Not oriented NAD RLE Hip Dressing intact with mild ss drainage, no erythema, very little swelling +motor ehl, +sens (patient retracts to touch), +nvi calf supple BCR X 5 Assessment & Plan Ortho Post Op Day #: 2 Problem List: Assessment and Plan Right peritrochanteric hip fracture. Dementia. pod#2 ORIF R Hip, IM Nail Demented. Cannot answer questions clearly. Appears comfortable in bed. PT - TTWBing right leg if oriented. Hold dressing changes unless saturated. Ice hip bid. Lovenox for dvt prophylaxis. SNF when med stable. Likely placement on Friday. F/U in 2-3 weeks for postop xrays. Lennox Moran Mar 28, 2018 11:53
[2018-03-28 12:00] LABS: AUTOMATED NEUTROPHIL # 6.3 TH/MM3 (1.8-7.7); BASOPHIL # 0.1 TH/MM3 (0-0.2); BASOPHIL % 0.7 % (0.0-2.0); EOSINOPHIL # 0.2 TH/MM3 (0-0.4); EOSINOPHIL % 2.9 % (0.0-4.0); HEMATOCRIT 22.1 % (35.0-46.0); HEMOGLOBIN 7.7 GM/DL (11.6-15.3); LYMPH % 10.2 % (9.0-44.0); LYMPHOCYTE # 0.9 TH/MM3 (1.0-4.8); MEAN CELL VOLUME 84.7 FL (80.0-100.0); MEAN CORPUSCULAR HEMOGLOBIN 29.7 PG (27.0-34.0); MEAN PLATELET VOLUME 9.5 FL (7.0-11.0); MONO % 11.2 % (0.0-8.0); MONOCYTE # 0.9 TH/MM3 (0-0.9); PLATELET COUNT 222 TH/MM3 (150-450); RED BLOOD COUNT 2.61 MIL/MM3 (4.00-5.30); RED CELL DISTRIBUTION WIDTH 14.5 % (11.6-17.2); WHITE BLOOD COUNT 8.4 TH/MM3 (4.0-11.0)
[2018-03-28] MEDS: ENOXAPARIN SODIUM 30 MG/0.3 ML SYRINGE SQ SCH (12:57)
[2018-03-28] MEDS ORDERED: FUROSEMIDE 20 MG/2 ML VIAL IV PUSH PRN (17:00)
[2018-03-28] MEDS ORDERED: SODIUM CHLOR 0.9% 250 ML INJ 250 ML IV ONE (17:00)
[2018-03-28] MEDS: traMADol HCL 50 MG TAB PO PRN (17:36)
[2018-03-28] MEDS ORDERED: BISACODYL 10 MG SUPP RECTAL PRN (17:45)
[2018-03-28] MEDS: SENNOSIDES 8.6 MG TAB PO SCH (21:03)
[2018-03-28] MEDS: LACTULOSE SYRUP 20 GM/30 ML CUP PO SCH (21:03)
[2018-03-28] MEDS: POLYETHYLENE GLYCOL 17 GM PKG PO SCH (21:03)
[2018-03-28] MEDS: QUEtiapine FUMARATE 25 MG TAB PO SCH (21:03)
[2018-03-29] VITALS (9 sets, daily range): BP systolic 105–168; BP diastolic 55–79; PULSE 70–107; RESP 15–24; TEMP 97.2–98.1; O2SAT 91–95
[2018-03-29 06:00] LABS: AUTOMATED NEUTROPHIL # 6.1 TH/MM3 (1.8-7.7); BASOPHIL # 0.1 TH/MM3 (0-0.2); BASOPHIL % 1.1 % (0.0-2.0); EOSINOPHIL # 0.3 TH/MM3 (0-0.4); EOSINOPHIL % 4.1 % (0.0-4.0); HEMATOCRIT 33.4 % (35.0-46.0); HEMOGLOBIN 11.2 GM/DL (11.6-15.3); LYMPH % 11.3 % (9.0-44.0); LYMPHOCYTE # 0.9 TH/MM3 (1.0-4.8); MEAN CELL VOLUME 83.5 FL (80.0-100.0); MEAN CORPUSCULAR HGB CONC 33.6 % (32.0-36.0); MEAN PLATELET VOLUME 8.7 FL (7.0-11.0); MONO % 10.4 % (0.0-8.0); MONOCYTE # 0.9 TH/MM3 (0-0.9); NEUT % 73.1 % (16.0-70.0); PLATELET COUNT 290 TH/MM3 (150-450); RED CELL DISTRIBUTION WIDTH 16.1 % (11.6-17.2); WHITE BLOOD COUNT 8.4 TH/MM3 (4.0-11.0)
[2018-03-29 06:30] LABS: BICARBONATE 32.4 MEQ/L (21.0-32.0); CALCIUM 9.6 MG/DL (8.5-10.1); CREATININE 0.8 MG/DL (0.50-1.00)
[2018-03-29] MEDS: LACTATED RINGER'S 1000 ML INJ 1,000 ML IV SCH ×2 (07:04→08:16)
--- NOTE | 2018-03-29 08:08 | PD.ORT.PN ---
Subjective Post Op Day #: awake, severe demenita, restrained, not following commands Objective Vitals Vital Signs Date Time Temp Pulse Resp B/P (MAP) Pulse Ox O2 Delivery O2 Flow Rate FiO2 03/29/18 04:12 97.8 74 17 108/57 94 03/29/18 02:05 98.0 70 15 106/57 93 03/29/18 01:33 98.1 74 16 105/55 95 03/29/18 00:56 97.9 74 17 109/55 94 03/28/18 23:15 98.5 75 16 101/55 95 03/28/18 22:50 98.1 80 16 90/54 91 03/28/18 20:00 98.2 63 20 156/69 (98) 90 03/28/18 17:42 97.2 92 23 156/70 (98) 97 03/28/18 17:42 97 Room Air 03/28/18 17:26 Room Air 03/28/18 13:21 98.1 99 24 141/60 (87) 93 03/28/18 10:13 12 03/28/18 08:18 Room Air 03/28/18 08:15 23 I/O 03/28/18 03/28/18 03/28/18 03/29/18 03/29/18 03/29/18 07:00 15:00 23:00 07:00 15:00 23:00 Intake Total 3191 ml 855 ml 800 ml Output Total 550 ml 2050 ml Balance -550 ml 3191 ml 855 ml -1250 ml Intake Oral 200 ml IV Total 3191 ml 653 ml Packed Cells 800 ml Blood Product IV Normal Saline Flush 2 ml Output Urine Total 550 ml 2050 ml Result Diagram: 03/29/18 0538 03/29/18 0538 Objective Remarks Laying in bed Not oriented NAD RLE Hip Dressing intact with mild ss drainage, no erythema, very little swelling +motor ehl, +sens (patient retracts to touch), +nvi calf supple BCR X 5 Assessment & Plan Assessment and Plan Right peritrochanteric hip fracture. Dementia. pod#3 ORIF R Hip, IM Nail Demented. Cannot answer questions clearly. Appears comfortable in bed. PT - TTWBing right leg if oriented. Hold dressing changes unless saturated. Ice hip bid. Lovenox for dvt prophylaxis. SNF when med stable. Likely placement on Friday. F/U in 2-3 weeks for postop xrays. Yovani Martin MD Mar 29, 2018 08:08
[2018-03-29] MEDS: DOCUSATE SODIUM 100 MG CAP PO SCH ×2 (08:15→20:44)
[2018-03-29] MEDS: SODIUM CHLORIDE 0.9% FLUSH 10 ML FLUSH IV FLUSH SCH ×2 (08:15→20:43)
[2018-03-29] MEDS: MAGNESIUM HYDROXIDE SUSP 30 ML CUP PO SCH ×2 (08:15→20:44)
[2018-03-29] MEDS: traMADol HCL 50 MG TAB PO PRN ×2 (08:15→14:35)
[2018-03-29] MEDS: SULFAMETHOXAZOLE-TRIMETHOPRIM DS 800-160 MG TAB PO SCH ×2 (08:15→20:38)
[2018-03-29] MEDS ORDERED: ENOX30P SQ ×2 (10:34→14:15)
[2018-03-29] MEDS ORDERED: SULF1TAB23 PO (10:34)
--- NOTE | 2018-03-29 10:42 | HHI.DCPOC ---
Discharge Care Plan Diagnosis: (1) Fracture of femoral neck, right (2) Dementia (3) HTN (hypertension) (4) UTI (lower urinary tract infection) Goals to Promote Your Health * To prevent worsening of your condition and complications * To maintain your health at the optimal level Directions to Meet Your Goals Take your medications as prescribed Follow your dietary instruction Follow activity as directed Keep your appointments as scheduled Take your immunizations and boosters as scheduled If your symptoms worsen call your PCP, if no PCP go to Urgent Care Center or Emergency Room Smoking is Dangerous to Your Health. Avoid second hand smoke Call the 24-hour hour crisis hotline for domestic abuse at Dionna Avendaño Mar 29, 2018 10:42 Hunter Blanco DO Mar 29, 2018 15:01
--- NOTE | 2018-03-29 10:49 | HHI.DS ---
Discharge Summary Admission Date Mar 25, 2018 at 15:20 Discharge Date: Mar 30, 2018 Admitting Diagnosis Right femoral neck fracture (1) Fracture of femoral neck, right Diagnosis: Principal ICD Codes: S72.001A - Fracture of unspecified part of neck of right femur, initial encounter for closed fracture (2) Dementia Diagnosis: Principal ICD Codes: F03.90 - Dementia Status: Acute (3) UTI (lower urinary tract infection) Diagnosis: Principal ICD Codes: N39.0 - UTI (lower urinary tract infection) Status: Acute Consultants Dr. Key, Orthopedic surgery Procedures 03/26/18 Open treatment internal fixation right hip fracture with intramedullary ingris with Dr. Key Brief History This a 78-year-old female patient with past medical history which includes dementia, hypertension, hypercalcemia, hyperlipidemia. Patient presents the ED via EMS for evaluation after mechanical fall last night. The fall was witnessed by the caregiver. Caregiver on scene reports that patient did not hit her head or lose consciousness. Patient disoriented x 3. On exam the patient is alert, but demented and unable to provide meaningful information therefore information gathered from patient physical exam caregiver and prior computerized charting. X-ray right hip reviewed and reveals acute intertrochanteric right femoral neck fracture CBC/BMP: 03/29/18 0538 03/29/18 0538 Significant Findings Laboratory Tests Test 03/26/18 19:48 03/27/18 06:03 03/28/18 11:15 03/29/18 05:38 White Blood Count 17.0 TH/MM3 (4.0-11.0) Red Blood Count 3.50 MIL/MM3 (4.00-5.30) 2.61 MIL/MM3 (4.00-5.30) Hemoglobin 9.8 GM/DL (11.6-15.3) 8.6 GM/DL (11.6-15.3) 7.7 GM/DL (11.6-15.3) 11.2 GM/DL (11.6-15.3) Hematocrit 29.8 % (35.0-46.0) 24.9 % (35.0-46.0) 22.1 % (35.0-46.0) 33.4 % (35.0-46.0) Neutrophils (%) (Auto) 87.5 % (16.0-70.0) 75.0 % (16.0-70.0) 73.1 % (16.0-70.0) Lymphocytes (%) (Auto) 4.3 % (9.0-44.0) Neutrophils # (Auto) 14.9 TH/MM3 (1.8-7.7) Lymphocytes # (Auto) 0.7 TH/MM3 (1.0-4.8) 0.9 TH/MM3 (1.0-4.8) 0.9 TH/MM3 (1.0-4.8) Monocytes # (Auto) 1.3 TH/MM3 (0-0.9) Blood Urea Nitrogen 29 MG/DL (7-18) 23 MG/DL (7-18) Random Glucose 195 MG/DL (74-106) Estimat Glomerular Filtration Rate 71 ML/MIN (>89) 69 ML/MIN (>89) Monocytes (%) (Auto) 11.2 % (0.0-8.0) 10.4 % (0.0-8.0) Eosinophils (%) (Auto) 4.1 % (0.0-4.0) Carbon Dioxide Level 32.4 MEQ/L (21.0-32.0) Imaging Last Impressions Hip X-Ray 03/26/18 0000 Signed Impressions: CONCLUSION: Successful ORIF. Hip and Pelvis X-Ray 03/25/18 1157 Signed Impressions: CONCLUSION: Acute intertrochanteric right femoral neck fracture. Chest X-Ray 03/25/18 1157 Signed Impressions: CONCLUSION: No acute intrathoracic disease. Stable examination compared to the prior study. PE at Discharge GENERAL: This is an elderly 78 year old female with dementia disoriented x 3, in no apparent distress. CARDIOVASCULAR: Regular rate and rhythm RESPIRATORY: Clear to auscultation. Breath sounds equal bilaterally. GASTROINTESTINAL: Abdomen soft, non-tender, nondistended. Normal active bowel sounds MUSCULOSKELETAL: Extremities without clubbing, cyanosis, or edema. Post- op dressing dry and intact NEURO: disoriented x 3. No focal deficits noted Hospital Course Fracture of femoral neck, right 78-year-old with dementia suffered mechanical fall X-ray right hip reviewed and reveals acute intertrochanteric right femoral neck fracture Consults orthopedic surgery ER physician spoke with Dr. Malcolm who recommends velasquez's traction and plans surgical intervention in a.m. (03/26/18) [place] and morphine as needed for pain Bowel regimen S/P Open treatment internal fixation right hip fracture with intramedullary ingris with Dr. Key 03/26/18 Reinoso catheter had to be placed due to retention (03/27) Case discussed with patient's POA daughter Kayla (03/28), questions were answered to the best of my ability and plan for SNF at DC was also discussed. Plan to DC to SNF SCDs and Lovenox for DVT prophylaxis Post-op anemia Hgb 03/28 7.7 2 units PRBCs given HGB 03/29 11.2 Dementia Continue Seroquel 25 mg p.o. nightly Haldol as needed for agitation Per patient's granddaughter (03/25) at bedside patient has not done well with Ativan in the past Reorient as needed patient in restraints - discussed with RN and supervisor propellant charge loading to please remove restraints and watch patient closely UTI (lower urinary tract infection) Urine culture positive for E coli guillaume sensitive Patient started on Bactrim Urinary retention Patient had urinary retention with 500ml per bladder scan Reinoso catheter re inserted (03/27) Pt Condition on Discharge: Stable Discharge Disposition: Discharge to SNF Discharge Instructions DIET: Follow Instructions for: As Tolerated, No Restrictions Activities you can perform: See Additionl Instruction Other Activity Instructions: activity and dressing changes per prthopedic surgery: PT - TTWBing right leg if oriented. Follow up Referrals: Orthopedics - 2 Weeks with Yannick Key MD PCP Follow-up - [address] Kilpatrick New Medications: Enoxaparin Inj (Lovenox Inj) 30 Mg/0.3 Ml Syr 30 MG SQ Q24H for Blood Clot Prevention for 20 Days, INJECTION 0 Refills Sulfamethoxazole-Trimethoprim (Sulfamethoxazole-Trimethoprim) 800-160 Mg Tab 1 TAB PO Q12HR for antibiotic for 5 Days, TAB 0 Refills Tramadol (Ultram) 50 Mg Tab 50 MG PO Q6H PRN for PAIN SCALE 4 TO 10, #20 TAB 0 Refills Continued Medications: Quetiapine XR (Seroquel XR) 50 Mg Tab 25 MG PO HS, #30 TAB 0 Refills Discontinued Medications: Acetaminophen-Codeine (Tylenol-Codeine #3) 300-30 mg Tab 1 TAB PO Q6HR PRN for PAIN, #9 TAB 0 Refills Additional Information Patient examined. Assessment and plan formulated with Dionna Avendaño PA-C. I agree with the above. Dionna Avendaño Mar 29, 2018 10:48 Hunter Blanco DO Mar 29, 2018 15:01
[2018-03-29] MEDS: ENOXAPARIN SODIUM 30 MG/0.3 ML SYRINGE SQ SCH (13:06)
--- NOTE | 2018-03-29 14:14 | HHI.PR ---
Subjective Remarks Patient resting in bed continues to be disorients x 3 appears comfortable in no acute distress had BM today Objective Vitals Vital Signs Date Time Temp Pulse Resp B/P (MAP) Pulse Ox O2 Delivery O2 Flow Rate FiO2 03/29/18 13:02 97.2 102 19 135/67 (89) 91 03/29/18 08:25 100 94 03/29/18 08:09 97.9 107 24 168/79 (108) 03/29/18 04:12 97.8 74 17 108/57 94 03/29/18 02:05 98.0 70 15 106/57 93 03/29/18 01:33 98.1 74 16 105/55 95 03/29/18 00:56 97.9 74 17 109/55 94 03/28/18 23:15 98.5 75 16 101/55 95 03/28/18 22:50 98.1 80 16 90/54 91 03/28/18 20:00 98.2 63 20 156/69 (98) 90 03/28/18 17:42 97.2 92 23 156/70 (98) 97 03/28/18 17:42 97 Room Air 03/28/18 17:26 Room Air 03/29/18 03/29/18 03/30/18 15:00 23:00 07:00 Intake Total 1352 ml Balance 1352 ml IV Total 1352 ml Result Diagram: 03/29/18 0538 03/29/18 0538 Other Results Laboratory Tests Test 03/26/18 19:48 03/27/18 06:03 03/28/18 11:15 03/29/18 05:38 White Blood Count 17.0 TH/MM3 8.4 TH/MM3 8.4 TH/MM3 Red Blood Count 3.50 MIL/MM3 2.61 MIL/MM3 4.00 MIL/MM3 Hemoglobin 9.8 GM/DL 8.6 GM/DL 7.7 GM/DL 11.2 GM/DL Hematocrit 29.8 % 24.9 % 22.1 % 33.4 % Mean Corpuscular Volume 85.0 FL 84.7 FL 83.5 FL Mean Corpuscular Hemoglobin 28.1 PG 29.7 PG 28.0 PG Mean Corpuscular Hemoglobin Concent 33.0 % 35.0 % 33.6 % Red Cell Distribution Width 14.9 % 14.5 % 16.1 % Platelet Count 285 TH/MM3 222 TH/MM3 290 TH/MM3 Mean Platelet Volume 9.8 FL 9.5 FL 8.7 FL Neutrophils (%) (Auto) 87.5 % 75.0 % 73.1 % Lymphocytes (%) (Auto) 4.3 % 10.2 % 11.3 % Monocytes (%) (Auto) 7.4 % 11.2 % 10.4 % Eosinophils (%) (Auto) 0.3 % 2.9 % 4.1 % Basophils (%) (Auto) 0.5 % 0.7 % 1.1 % Neutrophils # (Auto) 14.9 TH/MM3 6.3 TH/MM3 6.1 TH/MM3 Lymphocytes # (Auto) 0.7 TH/MM3 0.9 TH/MM3 0.9 TH/MM3 Monocytes # (Auto) 1.3 TH/MM3 0.9 TH/MM3 0.9 TH/MM3 Eosinophils # (Auto) 0.0 TH/MM3 0.2 TH/MM3 0.3 TH/MM3 Basophils # (Auto) 0.1 TH/MM3 0.1 TH/MM3 0.1 TH/MM3 CBC Comment DIFF FINAL DIFF FINAL DIFF FINAL Differential Comment Blood Urea Nitrogen 29 MG/DL 23 MG/DL Creatinine 0.78 MG/DL 0.80 MG/DL Random Glucose 195 MG/DL 92 MG/DL Calcium Level 9.3 MG/DL 9.6 MG/DL Sodium Level 140 MEQ/L 143 MEQ/L Potassium Level 3.9 MEQ/L 4.0 MEQ/L Chloride Level 106 MEQ/L 106 MEQ/L Carbon Dioxide Level 25.2 MEQ/L 32.4 MEQ/L Anion Gap 9 MEQ/L 5 MEQ/L Estimat Glomerular Filtration Rate 71 ML/MIN 69 ML/MIN Lactic Acid Level 1.5 mmol/L Imaging Last Impressions Hip and Pelvis X-Ray 03/25/18 115 Signed Impressions: CONCLUSION: Acute intertrochanteric right femoral neck fracture. Chest X-Ray 03/25/18 115 Signed Impressions: CONCLUSION: No acute intrathoracic disease. Stable examination compared to the prior study. Objective Remarks GENERAL: This is an elderly 78 year old female with dementia disoriented x 3, in no apparent distress. CARDIOVASCULAR: Regular rate and rhythm RESPIRATORY: Clear to auscultation. Breath sounds equal bilaterally. GASTROINTESTINAL: Abdomen soft, non-tender, nondistended. Normal active bowel sounds MUSCULOSKELETAL: Extremities without clubbing, cyanosis, or edema. Post- op dressing dry and intact NEURO: disoriented x 3. No focal deficits noted Procedures 03/26/18 Open treatment internal fixation right hip fracture with intramedullary ingris with Dr. Key A/P Problem List: (1) Fracture of femoral neck, right ICD Codes: S72.001A - Fracture of unspecified part of neck of right femur, initial encounter for closed fracture Plan: 78-year-old with dementia suffered mechanical fall X-ray right hip reviewed and reveals acute intertrochanteric right femoral neck fracture Consults orthopedic surgery ER physician spoke with Dr. Malcolm who recommends velasquez's traction and plans surgical intervention in a.m. (03/26/18) [place] and morphine as needed for pain Bowel regimen, had BM 03/29/18 S/P Open treatment internal fixation right hip fracture with intramedullary ingris with Dr. Key 03/26/18 Reinoso catheter had to be placed due to retention (03/27) Plan to DC to SNF in AM SCDs and Lovenox for DVT prophylaxis (2) Dementia ICD Codes: F03.90 - Dementia Status: Acute Plan: Continue Seroquel 25 mg p.o. nightly Haldol as needed for agitation Per patient's granddaughter (03/25) at bedside patient has not done well with Ativan in the past Reorient as needed patient no longer in restraints nt closely (3) UTI (lower urinary tract infection) ICD Codes: N39.0 - UTI (lower urinary tract infection) Status: Acute Plan: Urine culture positive for E coli guillaume sensitive Patient started on Bactrim Assessment and Plan Patient examined. Assessment and plan formulated with Dionna Avendaño PA-C. I agree with the above. Dionna Avendaño Mar 29, 2018 14:14 Hunter Blanco DO Mar 29, 2018 15:00
[2018-03-29] MEDS ORDERED: TRAM50 PO (14:43)
[2018-03-29] MEDS: QUEtiapine FUMARATE 25 MG TAB PO SCH (20:38)
[2018-03-29] MEDS: LACTULOSE SYRUP 20 GM/30 ML CUP PO SCH (20:44)
[2018-03-29] MEDS: POLYETHYLENE GLYCOL 17 GM PKG PO SCH (20:44)
[2018-03-29] MEDS: SENNOSIDES 8.6 MG TAB PO SCH (20:44)
[2018-03-30 00:55] VITALS: BP 114/57; PULSE 87; RESP 17; TEMP 98.5; O2SAT 93
[2018-03-30 04:45] VITALS: BP 138/73; PULSE 93; RESP 17; TEMP 98; O2SAT 94
[2018-03-30 08:00] VITALS: BP 164/77; PULSE 72; RESP 18; TEMP 97.9; O2SAT 96
[2018-03-30] MEDS: MAGNESIUM HYDROXIDE SUSP 30 ML CUP PO SCH ×2 (08:06→21:00)
[2018-03-30] MEDS: DOCUSATE SODIUM 100 MG CAP PO SCH ×2 (08:06→21:00)
[2018-03-30] MEDS: SODIUM CHLORIDE 0.9% FLUSH 10 ML FLUSH IV FLUSH SCH ×2 (08:06→21:00)
[2018-03-30] MEDS: SULFAMETHOXAZOLE-TRIMETHOPRIM DS 800-160 MG TAB PO SCH ×2 (08:07→21:13)
[2018-03-30 12:00] VITALS: BP 134/91; PULSE 95; RESP 19; TEMP 98.4; O2SAT 95
[2018-03-30] MEDS: traMADol HCL 50 MG TAB PO PRN (12:09)
[2018-03-30] MEDS: ENOXAPARIN SODIUM 30 MG/0.3 ML SYRINGE SQ SCH (12:09)
[2018-03-30 16:46] VITALS: BP 135/63; PULSE 88; RESP 18; TEMP 97.7; O2SAT 94
[2018-03-30] MEDS: LACTATED RINGER'S 1000 ML INJ 1,000 ML IV SCH (17:06)
[2018-03-30 20:00] VITALS: BP 164/88; PULSE 94; RESP 18; TEMP 98.5; O2SAT 92
[2018-03-30] MEDS: LACTULOSE SYRUP 20 GM/30 ML CUP PO SCH (21:00)
[2018-03-30] MEDS: SENNOSIDES 8.6 MG TAB PO SCH (21:00)
[2018-03-30] MEDS: POLYETHYLENE GLYCOL 17 GM PKG PO SCH (21:00)
[2018-03-30] MEDS: QUEtiapine FUMARATE 25 MG TAB PO SCH (21:13)
[2018-03-31] VITALS: BP 143/76; PULSE 88; RESP 18; TEMP 98; O2SAT 92
[2018-03-31] MEDS: LACTATED RINGER'S 1000 ML INJ 1,000 ML IV SCH (03:03)
[2018-03-31 08:00] VITALS: BP 157/72; PULSE 91; RESP 19; TEMP 98; O2SAT 93
[2018-03-31] MEDS: SULFAMETHOXAZOLE-TRIMETHOPRIM DS 800-160 MG TAB PO SCH (08:23)
[2018-03-31] MEDS: SODIUM CHLORIDE 0.9% FLUSH 10 ML FLUSH IV FLUSH SCH (08:23)
[2018-03-31] MEDS: MAGNESIUM HYDROXIDE SUSP 30 ML CUP PO SCH (08:23)
[2018-03-31] MEDS: DOCUSATE SODIUM 100 MG CAP PO SCH (08:23)
[2018-03-31] MEDS: ENOXAPARIN SODIUM 30 MG/0.3 ML SYRINGE SQ SCH (12:03)
[2018-03-31 12:19] VITALS: BP 126/70; PULSE 86; RESP 18; TEMP 97.7; O2SAT 96
--- NOTE | 2018-03-31 13:13 | HHI.PR ---
Subjective Remarks Late charting 03/30/18 Patient resting in bed continues to be disoriented x 3 No new concerns/complaints No longer in restraints Objective Vitals Vital Signs Date Time Temp Pulse Resp B/P (MAP) Pulse Ox O2 Delivery O2 Flow Rate FiO2 03/31/18 12:19 97.7 86 18 126/70 (88) 96 03/31/18 08:00 98.0 91 19 157/72 (100) 93 03/31/18 00:00 98.0 88 18 143/76 (98) 92 03/30/18 20:00 98.5 94 18 164/88 (113) 92 03/30/18 16:46 97.7 88 18 135/63 (87) 94 Result Diagram: 03/29/18 0538 03/29/18 0538 Imaging Last Impressions Hip and Pelvis X-Ray 03/25/18 1157 Signed Impressions: CONCLUSION: Acute intertrochanteric right femoral neck fracture. Chest X-Ray 03/25/18 1157 Signed Impressions: CONCLUSION: No acute intrathoracic disease. Stable examination compared to the prior study. Objective Remarks GENERAL: This is an elderly 78 year old female with dementia disoriented x 3, in no apparent distress. CARDIOVASCULAR: Regular rate and rhythm RESPIRATORY: Clear to auscultation. Breath sounds equal bilaterally. GASTROINTESTINAL: Abdomen soft, non-tender, nondistended. Normal active bowel sounds MUSCULOSKELETAL: Extremities without clubbing, cyanosis, or edema. Post- op dressing dry and intact NEURO: disoriented x 3. No focal deficits noted Procedures 03/26/18 Open treatment internal fixation right hip fracture with intramedullary ingris with Dr. Key A/P Problem List: (1) Fracture of femoral neck, right ICD Codes: S72.001A - Fracture of unspecified part of neck of right femur, initial encounter for closed fracture Plan: 78-year-old with dementia suffered mechanical fall X-ray right hip reviewed and reveals acute intertrochanteric right femoral neck fracture Consults orthopedic surgery ER physician spoke with Dr. Malcolm who recommends velasquez's traction and plans surgical intervention in a.m. (03/26/18) [place] and morphine as needed for pain Bowel regimen S/P Open treatment internal fixation right hip fracture with intramedullary ingris with Dr. Key 03/26/18 Reinoso catheter had to be placed due to retention (03/27) Plan to DC to SNF once arrangements made SCDs and Lovenox for DVT prophylaxis (2) Dementia ICD Codes: F03.90 - Dementia Status: Acute Plan: Continue Seroquel 25 mg p.o. nightly Haldol as needed for agitation Per patient's granddaughter (03/25) at bedside patient has not done well with Ativan in the past Reorient as needed patient no longer in restraints (3) UTI (lower urinary tract infection) ICD Codes: N39.0 - UTI (lower urinary tract infection) Status: Acute Plan: Urine culture positive for E coli guillaume sensitive Patient started on Bactrim Assessment and Plan Patient examined. Assessment and plan formulated with Dionna Avendaño PA-C. I agree with the above. late entry note. pt dc to snf was delayed by 48hr off restraint rule. Dionna Avendaño Mar 31, 2018 13:13 Liborio Peñaloza MD Mar 31, 2018 14:01
[2018-03-31 15:30] VITALS: BP 124/67; PULSE 83; RESP 19; TEMP 98.1; O2SAT 94
[2018-03-31] MEDS: traMADol HCL 50 MG TAB PO PRN (15:46)
== END 2018-03-31 16:15 | DRG 481 ==
LOC: NEPE 11:42 → NEDA 15:20 → N06A 17:15
PROVIDERS: ADMIT Hospitalist; ATTEND Hospitalist
PROC: 0QS606Z Reposition Right Upper Femur with Intramedullary Internal Fixation Device, Open Approach (ICD-10-PCS; principal; 2018-03-26 12:05)
PROC: 0T9B70Z Drainage of Bladder with Drainage Device, Via Natural or Artificial Opening (ICD-10-PCS; 2018-03-27)
DX: S72.141A Displaced intertrochanteric fracture of right femur, initial encounter for closed fracture (principal); N39.0 Urinary tract infection, site not specified; G30.9 Alzheimer's disease, unspecified; Z78.1 Physical restraint status; F02.80 Dementia in other diseases classified elsewhere, unspecified severity, without behavioral disturbance, psychotic disturbance, mood disturbance, and anxiety; I10 Essential (primary) hypertension; E78.5 Hyperlipidemia, unspecified; I44.0 Atrioventricular block, first degree; R33.9 Retention of urine, unspecified; D64.9 Anemia, unspecified; F41.9 Anxiety disorder, unspecified; B96.20 Unspecified Escherichia coli [E. coli] as the cause of diseases classified elsewhere; W18.30XA Fall on same level, unspecified, initial encounter; Y92.009 Unspecified place in unspecified non-institutional (private) residence as the place of occurrence of the external cause; Z82.3 Family history of stroke; Z86.73 Personal history of transient ischemic attack (TIA), and cerebral infarction without residual deficits; Z96.642 Presence of left artificial hip joint
CPT/HCPCS: 36430; 51702; 71045; 73502; 76000; 80048; 80053; 81001; 83605; 85014; 85018; 85025; 85610; 85730; 86850; 86900; 86901; 86920; 87077; 87086; 87186; 93005; 94664; 96365; 96375; C1713; J0690; J0696; J1580; J1630; J1650; J1940; J2175; J2270; J2370; J7050; J7120; J7613; P9016